=== PATIENT | male | born 1990 | race Caucasian/White ===

== ENCOUNTER 2024-09-06 21:47 | Emergency (ER) | payer MEDICARE, MEDICAID, SELFPAY ==
[2024-09-06 21:53] VITALS: BP 153/92; PULSE 81; RESP 18; TEMP 37.5; O2SAT 91; BMI 22.4
[2024-09-06 22:18] LABS: Amphetamines Screen Urine Negative (Negative); Barbiturates Screen Urine Negative (Negative); Benzodiazepines Screen Urine Negative (Negative); Cocaine Screen Urine Negative (Negative); Opiate Screen Urine Negative (Negative); PCP Screen Urine Negative (Negative); THC Screen Urine Negative (Negative)
--- NOTE | 2024-09-06 22:35 | PC.NURSE ---
96 Hour Involuntary Hold Patient Rights have been reviewed with the patient and a copy of the same has been provided to him. Shoe Repair Supervisor Martha was present at chair side during the presentation of Rights.
[2024-09-06 23:26] LABS: Basophils % 0.4 %; Eosinophils % 0.6 %; Hematocrit 39.4 % (37-53); Lymphocytes # 2.6 10^3/uL (0.8-4.8); Lymphocytes % 49.1 %; Mean Corpuscular HGB Conc 33.2 g/dL (30-55); Mean Corpuscular Hemoglobin 28.2 pg (27-33); Mean Corpuscular Volume 84.7 fl (82-101); Mean Platelet Volume 11.6 fL (7.4-10.4); Monocytes # 0.5 10^3/uL (0.2-0.9); Monocytes % 9.5 %; Nucleated Red Blood Cells % 0 %; Platelet Count 163 10^3/cmm (157-399); Red Blood Count 4.65 10^6/uL (3.85-5.65); Red Cell Distribution Width 14.4 % (12.1-15.1); White Blood Count 5.25 10^3/uL (3.29-11.43)
[2024-09-06 23:48] LABS: Alanine Aminotransferase 7 U/L (0-41); Alkaline Phosphatase 45 U/L (40-130); Anion Gap 15.4 (5-19); Aspartate Amino Transferase 12 U/L (0-40); Blood Urea Nitrogen 9 mg/dL (6-20); Calcium 8.5 mg/dL (8.5-10.5); Carbon Dioxide 26 mmol/L (22-29); Chloride 102 mmol/L (98-107); Creatinine Clr Calc Pharmacy 168.8237; Globulin 2.6 g/dL (1.3-4.6); Glomerular Filtration Rate 130.7 mL/min (90-130); Glucose 122 mg/dL (65-115); Osmolality Calculated 290 mOsm/kg (285-295); Potassium 3.4 mmol/L (3.5-5.1); Salicylate 0.5 mg/dL (3-10); Sodium 140 mmol/L (136-145); Total Bilirubin 0.2 mg/dL (0.15-1.2); Total Protein 6.6 g/dL (6.6-8.7)
[2024-09-06 23:49] LABS: Acetaminophen < 5.0 ug/mL (10-30); Alcohol Level < 10 mg/dL (0-10)
[2024-09-07 01:57] VITALS: BP 124/76; PULSE 71; O2SAT 98
[2024-09-07 04:18] VITALS: BP 95/60; PULSE 73; O2SAT 96
--- NOTE | 2024-09-07 05:56 | PC.NURSE ---
CALLED REPORT TO [facility] TO SEND BACK
--- NOTE | 2024-09-07 06:04 | ED.C_ITS ---
HPI - Psych 2 General: Chief Complaint: Psychiatric Symptoms Stated Complaint: psych eval, si Time Seen by Provider: 09/06/24 21:49 History of Present Illness: 34 yo with a history of drug use, gang v iolence, and recent placement in a assisted presents with suicidal ideation. Pt reports significant emotional distress following the deaths of close family members, including his son and twin brother, both of whom due to violence. Pt describes a recent attempt to harm himself by trying to cut his arm with a deodorant cap, but was unsuccessful. Pt has been out of the assisted for approximately 19 days and is currently under state guardianship, which has changed multiple times. Pt reports feeling upset, hungry, and thirsty, but denies intent to harm others. Pt expresses frustration with his current situation and lack of family support in the area. Related Data Allergies Allergy/AdvReac Type Severity Reaction Status Date / Time codeine Allergy Unknown Verified 09/06/24 22:59 haloperidol (From Haldol) Allergy Unknown Verified 09/06/24 22:59 ketamine Allergy Unknown Verified 09/06/24 22:59 Physical Exam 2 Const: COMMON NORMALS: no acute distress, patient oriented x3 and alert HENMT: COMMON NORMALS: normocephalic and atraumatic HEAD & SCALP: n ormocephalic and atraumatic Eye: COMMON NORMALS: Equal, round and reactive pupils present, EOMs intact bilaterally and no scleral icterus PUPIL: Yes Equal, round and reactive pupils present Resp: COMMON NORMALS: normal respiratory effort and No retractions Cardio: COMMON NORMALS: regular rate, regular rhythm and No murmurs present (Cardio) RATE: regular rate RHYTHM: regular rhythm GI: COMMON NORMALS: Normal to inspection, nondistended, normoactive bowel sounds present, Soft to palpation and non-tender PALPATION: Yes Soft to palpation Neuro: COMMON NORMALS: patient oriented x3 SENSORIUM/ORIENTATION: Yes alert Psych: OTHER: Suicidal thoughts with plan of cutting wrist. Skin: OTHER: Mild abrasion of the volar aspect of the left wrist. No laceration. Course 2 Vital Signs: Vital signs: Vital Signs Temperature 99.5 F 09/06/24 21:53 Pulse Rate 73 09/07/24 04:18 Respiratory Rate 18 09/06/24 21:53 Blood Pressure 95/60 09/07/24 04:18 Pulse Oximetry 96 09/07/24 04:18 Oxygen Delivery Me thod Room Air 09/07/24 04:18 MDM - Psych Medical Decision Making In summary, patient is a schizophrenic with a guardian who comes from assisted for suspected suicidal thoughts. He attempted to harm himself by abrading his forearm. After being observed for several hours emergency department he no longer feels suicidal. I do not think he is a credible threat to himself or anyone else. We contacted his assisted and they are happy to take him back. I think this is reasonable. He knows that he is always welcome back in emergency department if symptoms get worse before outpatient follow-up. Lab Data 09/06/24 23:08 09/06/24 23:08 Laboratory Results WBC 5.25 10^3/uL (3.29-11.43) 09/06/24 23:08 RBC 4.65 10^6/uL (3.85-5.65) 09/06/24 23:08 Hgb 13.10 g/dL (11.27-16.99) 09/06/24 23:08 Hct 39.4 % (37-53) 09/06/24 23:08 MCV 84.7 fl (82-101) 09/06/24 23:08 MCH 28.2 pg (27-33) 09/06/24 23:08 MCHC 33.2 g/dL (30-55) 09/06/24 23:08 RDW 14.4 % (12.1-15.1) 09/06/24 23:08 Plt Count 163 10^3/cmm (157-399) 09/06/24 23:08 MPV 11.6 fL (7.4-10.4) H 09/06/24 23:08 Neut % (Auto) 40.0 % 09/06/24 23:08 Lymph % (Auto) 49.1 % 09/06/24 23:08 Brooke % (Auto) 9.5 % 09/06/24 23:08 Eos % (Auto) 0.6 % 09/06/24 23:08 Baso % (Auto) 0.4 % 09/06/24 23:08 Neut # (Auto) 2.10 10^3/uL (1.8-7.7) 09/06/24 23:08 Lymph # (Auto) 2.6 10^3/uL (0.8-4.8) 09/06/24 23:08 Brooke # (Auto) 0.5 10^3/uL (0.2-0.9) 09/06/24 23:08 Eos # (Auto) 0.0 10^3/uL (0.0-0.8) 09/06/24 23:08 Baso # (Auto) 0.0 10^3/uL (0.0-0.1) 09/06/24 23:08 Nucleated RBC % (auto) 0 % 09/06/24 23:08 Nucleated RBCs # 0.0 /100WBC 09/06/24 23:08 Sodium 140 mmol/L (136-145) 09/06/24 23:08 Potassium 3.4 mmol/L (3.5-5.1) L 09/06/24 23:08 Chloride 102 mmol/L (98-107) 09/06/24 23:08 Carbon Dioxide 26 mmol/L (22-29) 09/06/24 23:08 Anion Gap 15.4 (5-19) 09/06/24 23:08 BUN 9 mg/dL (6-20) 09/06/24 23:08 Creatinine 0.7 mg/dL (0.7-1.2) 09/06/24 23:08 GFR Calculation 130.7 mL/min (90-130) H 09/06/24 23:08 Glucose 122 mg/dL (65-115) H 09/06/24 23:08 Calculated Osmolality 290 mOsm/kg (285-295) 09/06/24 23:08 Calcium 8.5 mg/dL (8.5-10.5) 09/06/24 23:08 Total Bilirubin 0.2 mg/dL (0.15-1.2) 09/06/24 23:08 AST 12 U/L (0-40) 09/06/24 23:08 ALT 7 U/L (0-41) 09/06/24 23:08 Alkaline Phosphatase 45 U/L (40-130) 09/06/24 23:08 Total Protein 6.6 g/dL (6.6-8.7) 09/06/24 23:08 Albumin 4.0 g/dL (3.5-5.2) 09/06/24 23:08 Globulin 2.6 g/dL (1.3-4.6) 09/06/24 23:08 Salicylates 0.5 mg/dL (3-10) L 09/06/24 23:08 Urine Opiates Screen Negative ng/mL (Negative) 09/06/24 22:03 Acetaminophen < 5.0 ug/mL (10-30) L 09/06/24 23:08 Ur Barbiturates Screen Negative ng/mL (Negative) 09/06/24 22:03 Ur Phencyclidine Scrn Negative ng/mL (Negative) 09/06/24 22:03 Ur Amphetamines Screen Negative ng/mL (Negative) 09/06/24 22:03 U Benzodiazepines Scrn Negative ng/mL (Negative) 09/06/24 22:03 Urine Cocaine Screen Negative ng/mL (Negative) 09/06/24 22:03 U Marijuana (THC) Screen Negative ng/mL (Negative) 09/06/24 22:03 Ethyl Alcohol < 10 mg/dL (0-10) 09/06/24 23:08 No radiology studies performed this visit Discharge Plan Discharge Patient Disposition: Home Clinical Impression: Major depress, sev w/ psych Condition: Stable Discharge Orders: Discharge ED (Routine); Ordered 09/07/24 Ordered By: Lito Sylvester Discharge Diet: Usual diet Discharge Activity: Resume usual activity Patient Instructions: Patient Portal & Ghada Instructions Activity Restrictions/Additional Instructions: You are always welcome back in the emergency department if you have suicidal thoughts. Print Language: Burmese Coding Level of Care Code ED Fresh Work Wrapper Layer for Michelle Flowers
== END 2024-09-07 06:29 | disposition home or self-care (01) ==
PROVIDERS: Emergency Medicine; Emergency Provider Student in an Organized Health Care Education/Training Program
DX: F32.3 Major depressive disorder, single episode, severe with psychotic features (principal)
CPT/HCPCS: 36415; 80053; 80306; 80307; 85025; 99283

== ENCOUNTER 2024-09-15 18:53 | Emergency (ER) | payer MEDICARE, MEDICAID, SELFPAY ==
[2024-09-15 19:08] VITALS: BP 138/79; PULSE 91; RESP 18; TEMP 36.7; O2SAT 97; BMI 26.3
--- NOTE | 2024-09-15 19:17 | W.ED.PSYCHS ---
HPI - Psych General: Chief Complaint: Psychiatric Symptoms Stated Complaint: mhe Time Seen by Provider: 09/15/24 18:59 History of Present Illness: 34-year-old male patient with a history of bipolar disorder schizophrenia. Apparently has a guardian in [facility], and stays in a fci and not improved. He presents with aggressive behavior towards staff in the fci. Evidently affidavits have been written. He is not physically ill. He has been cooperative with police transport. Related Data Allergies Allergy/AdvReac Type Severity Reaction Status Date / Time codeine Allergy Unknown Verified 09/06/24 22:59 haloperidol (From Haldol) Allergy Unknown Verified 09/06/24 22:59 ketamine Allergy Unknown Verified 09/06/24 22:59 Physical Exam Const: COMMON NORMALS: no acute distress GENERAL APPEARANCE: cooperative; not ill appearing and not frail appearing HENMT: COMMON NORMALS: normocephalic, atraumatic and Normal external nose present HEAD & SCALP: normocephalic and atraumatic FACE & SINUS: normal facial exam and face symmetric NOSE: Normal external nose present Eye: COMMON NORMALS: Equal, round and reactive pupils present and EOMs intact bilaterally PUPIL: Yes Equal, round and reactive pupils present Neck/C-Spine: GENERAL: Yes trachea midline Chest: CHEST: Yes Symmetrical chest wall rise Resp: COMMON NORMALS: normal respiratory effort, No retractions, No use of accessory muscles and clear to auscultation bilaterally AUSCULTATION: clear to auscultation bilaterally Cardio: COMMON NORMALS: regular rate and regular rhythm RATE: regular rate RHYTHM: regular rhythm GI: COMMON NORMALS: Normal to inspection, nondistended, normoactive bowel sounds present Extremity: COMMON NORMALS: no pedal edema Neuro: KELSI COMA SCALE: document GCS findings Kelsi coma scale eye opening: Spontaneous Kelsi coma scale verbal response: Orientated [place] coma scale motor response: Obey commands [place] coma scale total score: 15 SENSORY EXAM: Yes extremities (intact) Psych: COMMON NORMALS: speech normal SPEECH: Yes normal speech Skin: COMMON NORMALS: no rashes or lesions noted GENERAL SKIN EXAM: no rashes or lesions noted Course Vital Signs: Vital signs: Vital Signs Temperature 98.0 F 09/15/24 19:08 Pulse Rate 91 09/15/24 19:08 Respiratory Rate 18 09/15/24 19:08 Blood Pressure 138/79 09/15/24 19:08 Pulse Oximetry 97 09/15/24 19:08 Oxygen Delivery Me thod Room Air 09/15/24 19:08 MDM - Psych Medical Decision Making We have no beds available at our facility tonight. He appears medically stable. Affidavits have been written. The patient is evidently a petty of the state, and has a guardian. We have yet to be able to contact this person. Will arrange transfer, as we have no beds currently available at our facility. Lab Data 09/15/24 19:33 09/15/24 19:33 Laboratory Results WBC 5.42 10^3/uL (3.29-11.43) 09/15/24 19:33 RBC 4.56 10^6/uL (3.85-5.65) 09/15/24 19:33 Hgb 12.90 g/dL (11.27-16.99) 09/15/24 19:33 Hct 39.2 % (37-53) 09/15/24 19:33 MCV 86.0 fl (82-101) 09/15/24 19:33 MCH 28.3 pg (27-33) 09/15/24 19:33 MCHC 32.9 g/dL (30-55) 09/15/24 19:33 RDW 14.8 % (12.1-15.1) 09/15/24 19:33 Plt Count 179 10^3/cmm (157-399) 09/15/24 19:33 MPV 11.3 fL (7.4-10.4) H 09/15/24 19:33 Neut % (Auto) 41.6 % 09/15/24 19:33 Lymph % (Auto) 48.5 % 09/15/24 19:33 Mcpherson % (Auto) 8.9 % 09/15/24 19:33 Eos % (Auto) 0.6 % 09/15/24 19:33 Baso % (Auto) 0.2 % 09/15/24 19:33 Neut # (Auto) 2.26 10^3/uL (1.8-7.7) 09/15/24 19:33 Lymph # (Auto) 2.6 10^3/uL (0.8-4.8) 09/15/24 19:33 Mcpherson # (Auto) 0.5 10^3/uL (0.2-0.9) 09/15/24 19:33 Eos # (Auto) 0.0 10^3/uL (0.0-0.8) 09/15/24 19:33 Baso # (Auto) 0.0 10^3/uL (0.0-0.1) 09/15/24 19:33 Nucleated RBC % (auto) 0 % 09/15/24 19:33 Nucleated RBCs # 0.0 /100WBC 09/15/24 19:33 Sodium 139 mmol/L (136-145) 09/15/24 19:33 Potassium 3.8 mmol/L (3.5-5.1) 09/15/24 19:33 Chloride 104 mmol/L (98-107) 09/15/24 19:33 Carbon Dioxide 24 mmol/L (22-29) 09/15/24 19:33 Anion Gap 14.8 (5-19) 09/15/24 19:33 BUN 4 mg/dL (6-20) L 09/15/24 19:33 Creatinine 0.7 mg/dL (0.7-1.2) 09/15/24 19:33 GFR Calculation 130.7 mL/min (90-130) H 09/15/24 19:33 Glucose 99 mg/dL (65-115) 09/15/24 19:33 Calculated Osmolality 285 mOsm/kg (285-295) 09/15/24 19:33 Calcium 8.4 mg/dL (8.5-10.5) L 09/15/24 19:33 Total Bilirubin 0.2 mg/dL (0.15-1.2) 09/15/24 19:33 AST 13 U/L (0-40) 09/15/24 19:33 ALT 7 U/L (0-41) 09/15/24 19:33 Alkaline Phosphatase 37 U/L (40-130) L 09/15/24 19:33 Total Protein 6.5 g/dL (6.6-8.7) L 09/15/24 19:33 Albumin 4.1 g/dL (3.5-5.2) 09/15/24 19:33 Globulin 2.4 g/dL (1.3-4.6) 09/15/24 19:33 TSH 0.67 uIU/mL (0.27-4.20) 09/15/24 19:33 Urine Color Yellow (Yellow) 09/15/24 19:33 Urine Appearance Clear (CLEAR) 09/15/24 19:33 Urine pH 7.5 (5-7) 09/15/24 19:33 Ur Specific [place] 1.006 (1.005-1.030) 09/15/24 19:33 Urine Protein Negative (Negative) 09/15/24 19:33 Urine Glucose (UA) Negative (Normal) 09/15/24 19:33 Urine Ketones Negative (Negative) 09/15/24 19:33 Urine Blood Negative (Negative) 09/15/24 19:33 Urine Nitrate Negative (Negative) 09/15/24 19:33 Urine Bilirubin Negative (Negative) 09/15/24 19:33 Urine Urobilinogen 0.2 mg/dL (Negative) 09/15/24 19:33 Ur Leukocyte Esterase Negative (Negative) 09/15/24 19:33 Urine RBC 0-2 /hpf (0-2) 09/15/24 19:33 Urine WBC 0-5 /hpf (0-5) 09/15/24 19:33 Ur Squamous Epith Cells 0-5 /hpf (0-5) 09/15/24 19:33 Amorphous Sediment Not Reportable 09/15/24 19:33 Urine Bacteria None seen /hpf (NONE) 09/15/24 19:33 Hyaline Casts 0-4 /lpf H 09/15/24 19:33 Salicylates < 0.3 mg/dL (3-10) L 09/15/24 19:33 Urine Opiates Screen Negative ng/mL (Negative) 09/15/24 19:33 Acetaminophen < 5.0 ug/mL (10-30) L 09/15/24 19:33 Ur Barbiturates Screen Negative ng/mL (Negative) 09/15/24 19:33 Valproic Acid 70.4 ug/mL (50-100) 09/15/24 19:33 Ur Phencyclidine Scrn Negative ng/mL (Negative) 09/15/24 19:33 Ur Amphetamines Screen Negative ng/mL (Negative) 09/15/24 19:33 U Benzodiazepines Scrn Negative ng/mL (Negative) 09/15/24 19:33 Urine Cocaine Screen Negative ng/mL (Negative) 09/15/24 19:33 U Marijuana (THC) Screen Negative ng/mL (Negative) 09/15/24 19:33 Ethyl Alcohol < 10 mg/dL (0-10) 09/15/24 19:33 Influenza A (PCR) Negative (Negative) 09/15/24 19:55 Influenza Type B (PCR) Negative (Negative) 09/15/24 19:55 RSV (PCR) Negative (Negative) 09/15/24 19:55 SARS-CoV-2 (PCR) Negative (Negative) 09/15/24 19:55 No radiology studies performed this visit Discharge Plan Discharge Patient Disposition: Xfer Psychiatric Hosp Clinical Impression: Suicidal ideation Condition: Stable Print Language: Italian Coding Level of Care Code ED Instrument Operator for Michelle Flowers
--- NOTE | 2024-09-15 19:30 | ECG_ITS ---
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
[2024-09-15 19:43] LABS: Glucose Urine UA Negative (Normal); Hematocrit 39.2 % (37-53); Hemoglobin 12.90 g/dL (11.27-16.99); Mean Corpuscular HGB Conc 32.9 g/dL (30-55); Mean Corpuscular Hemoglobin 28.3 pg (27-33); Mean Corpuscular Volume 86.0 fl (82-101); Nitrate Urine Negative (Negative); Nucleated Red Blood Cells % 0 %; Platelet Count 179 10^3/cmm (157-399); Red Blood Count 4.56 10^6/uL (3.85-5.65); Specific Gravity, Urine 1.006 (1.005-1.030); White Blood Count 5.42 10^3/uL (3.29-11.43)
[2024-09-15 19:48] LABS: Add Urine Microscopic? YES
[2024-09-15 19:50] LABS: PCP Screen Urine Negative (Negative)
[2024-09-15 20:08] LABS: Acetaminophen < 5.0 ug/mL (10-30); Alanine Aminotransferase 7 U/L (0-41); Albumin Level 4.1 g/dL (3.5-5.2); Alcohol Level < 10 mg/dL (0-10); Alkaline Phosphatase 37 U/L (40-130); Anion Gap 14.8 (5-19); Aspartate Amino Transferase 13 U/L (0-40); Blood Urea Nitrogen 4 mg/dL (6-20); Calcium 8.4 mg/dL (8.5-10.5); Carbon Dioxide 24 mmol/L (22-29); Chloride 104 mmol/L (98-107); Creatinine Clr Calc Pharmacy 200.8697; Globulin 2.4 g/dL (1.3-4.6); Glucose 99 mg/dL (65-115); Osmolality Calculated 285 mOsm/kg (285-295); Potassium 3.8 mmol/L (3.5-5.1); Salicylate < 0.3 mg/dL (3-10); Sodium 139 mmol/L (136-145); Thyroid Stimulating Hormone 0.67 uIU/mL (0.27-4.20); Total Protein 6.5 g/dL (6.6-8.7)
[2024-09-15 20:38] LABS: Respiratory Syncytial Virus Ce NEGATIVE (Negative); SARS-CoV-2 PCR NEGATIVE (Negative)
[2024-09-16 05:30] VITALS: BP 119/72; PULSE 78; RESP 16; TEMP 36.6; O2SAT 98
== END 2024-09-16 10:29 ==
PROVIDERS: Emergency Provider Emergency Medicine
DX: R45.851 Suicidal ideations (principal); Z11.52 Encounter for screening for COVID-19
CPT/HCPCS: 36415; 80053; 80164; 80306; 80307; 81001; 84443; 85025; 87637; 93005; 93010; 99285; J9999

== ENCOUNTER 2024-11-08 11:10 | Emergency (ER) | payer MEDICARE, MEDICAID, SELFPAY ==
--- OUTSIDE RECORDS SUMMARY | 2011-12-09 11:38 | XMS_ITS | Continuity of Care Document ---
Author Organization [facility] Address [address] [id number] [address] Phone Care Team Providers Care Log Feeder Name Role Phone Chang DECKER, Olvin Unavailable Unavailable Allergies, Adverse Reactions, Alerts Substance Reaction Status Criticality No Known Allergies Active No Inform ation Medications Medication Instructions Dosage Effective Dates (start - stop) Status Comments ranitidine 150 mg Tab take 1 tablet by o ral route 2 times every day - Active Invega 3 mg 24 hr Tab take 1 tablet by o ral route every day in the morning 3 MG - Active gabapentin 100 mg Cap take 1 Capsule by oral route 3 times every day 100 MG - Active melatonin 5 mg Tab take 1 tablet my ora l route at bedtime for sleep - Active Concerta 54 mg 24 hr Tab take 1 tablet by oral route every day in the morning 54 MG - Active Procedures Procedure Date COMPREHEN METABOLIC PANEL (PP $15) COMPLETE CBC W/AUTO DIFF WBC (PP $10) Ju URINALYSIS, AUTO, W/O SCOPE (PP $5) ROUTINE VENIPUNCTURE OFFICE/OUTPATIENT VISIT, EST OFFICE/OUTPATIENT VISIT, NEW Advance Directives Directive Yes / No Effective Date File Name No Information Encounters Encounter Description Practice Location Reason(s) For Visit Diagnoses Date Provider Providers Copied on Encounter [facility], [id number] [facility], [place], [place], [id number], [place] tel:[phone] Family Medicine F1 No Information 2 Strong Olvin. [address], [place], [place], [id number], [place]. tel:[phone] [facility], [id number] [place], [id number], [place] tel:[phone] Family Medicine F1 Abdominal pain, epigastric 2 No Information OFFICE/OUTPA TIENT VISIT, [facility], [id number] [place], [place], [id number], [place] tel:[phone] Family Medicine F1 f/u on abdominal pain (chief complaint) bi-polar disorder (chief complaint) Abdominal pain, epigastricAttenti on deficit disorder of childhood with hyperactivityBipo lar disorder, unspecified 2 No Information OFFICE/OUTPA TIENT VISIT, [facility], [id number], [id number], [place] tel:[phone] Family Medicine F1 Establish Care (chief complaint) Attention deficit disorder of childhood with hyperactivityBipo lar disorder, unspecified 2 No Information Family History Family Member Type Diagnosis Age At Onset No Information Payers Payer name Insurance type Covered democrat ID Fran avalos(dewayne) L[place] Medicaid MC [id number] Social History Type Description Quantity Date Captured Comments Sex Male Smoking Status No Information Chief Complaint And Reason For Visit No Information Reason For Referral Reason For Referral No Information Plan Of Treatment Date Type Action Status Referral Ordered: Referral: psychiatry. Evaluate and treat. Appointment date/timeframe: 12/07/2011 ordered History Of Present Illness Encounter Date Complaint History Of Prese nt Illness No Information Functional Status Date Functional Assessmen t No Information Instructions Date Instruction Additional Infor mation No Information Assessments Type Assessment Date No Information Patient Care Teams Name Effective Dates (start - stop) Status Members No Information
--- OUTSIDE RECORDS SUMMARY | 2024-05-04 09:57 | XMS_ITS | Continuity of Care Document ---
Author Organization [address] [place] [address] Address [address] [facility] [address] [place] [address] Phone Care Team Providers Care Sdet Name Role Phone Raman Chairez DPM Unavailable Unavailable Allergies, Adverse Reactions, Alerts Substance Reaction Status Criticality codeine Active No Information Medications Medication Instructions Dosage Effective Dates (start - stop) Status Comments CAPLYTA (unknown strength) take 1 capsule by oral route every day Not Available - Active Advance Directives Directive Yes / No Effective Date File Name Resuscitation Attempt Resuscitation/CPR N/A N /A Other Directive No N/A N/A WARNING:The information contained in this section is historical and is provided for information only and does not constitute a legal document or any assurance that the information is still accurate. Please verify the information with the dodge of the legal document before using it for clinical purposes. Encounters Encounter Description Practice Location Reason(s) For Visit Diagnoses Date Provider Providers Copied on Encounter [address] [place] [address], [address] [facility], [place], [place], [id number], tel:[phone] [facility] No Information 5 MAXINE Salinas. Family History Family Member Type Diagnosis Age At Onset No Information Payers Payer name Insurance type Covered republican ID Authoriza tion(s) No Information Social History Type Description Quantity Date Captured Comments Sex Male Smoking Status No Information Chief Complaint And Reason For Visit No Information Reason For Referral Reason For Referral No Information History Of Present Illness Encounter Date Complaint History Of Prese nt Illness No Information Functional Status Date Functional Assessmen t No Information Instructions Date Instruction Additional Infor mation No Information Assessments Type Assessment Date No Information Patient Care Teams Name Effective Dates (start - stop) Status Members No Information
[2024-11-08 11:12] VITALS: BP 122/77; PULSE 89; TEMP 36.8; O2SAT 97; BMI 28.5
--- NOTE | 2024-11-08 11:19 | XR_ITS ---
WS: [id number] Exam: XR hand LT min 3V* [id number] Date/Time of Exam: 11/08/2024 11:37 AM Reason For Exam: trauma to pinky DLP: There is medial dislocation of the base of the middle phalanx of the fifth finger. No fracture seen. The remainder of the LEFT hand appears normal. No soft tissue foreign bodies. XR/XR hand LT min 3V* [id number] IMPRESSION: 1. Dislocation at the PIP joint of the fifth finger. There is some axial rotati on of the dislocated segment of the fifth finger.
--- NOTE | 2024-11-08 11:19 | W.ED.EXTPRO ---
HPI - Extremity Problem General: Chief complaint: Extremity Injury, Upper Stated complaint: left pinky finger Time Seen by Provider: 11/08/24 11:14 History of Present Illness: Patient comes in with left pinky pain. States that they are playing football when he felt something snap in his left pinky. On physical exam he has deformity of the left pinky with bruising and swelling. Will check x-ray, and reassess Related Data Allergies Allergy/AdvReac Type Severity Reaction Status Date / Time codeine Allergy Unknown Verified 11/08/24 11:16 haloperidol (From Haldol) Allergy Unknown Verified 11/08/24 11:16 ketamine Allergy Unknown Verified 11/08/24 11:16 Review of Systems Musc: Reports: other (Left pinky pain) Physical Exam Extremity: NARRATIVE EXTREMITY EXAM: Deformity, bruising, swelling of the left pinky Procedures Orthopedic Joint Reduction Joint #1: Time Out Performed: Yes Side: left Joint Reduction Location: finger (Left pinky PIP joint) Analgesia: none Technique used: traction/counter-traction Post-reduction neuro exam: intact Post-reduction vascular: intact Post Reduction X-Ray Obtained: No Splint Applied: No (Beto taped to the fourth finger) Patient Tolerated Procedure: well Course Vital Signs: Vital signs: Vital Signs Temperature 98.2 F 11/08/24 11:12 Pulse Rate 89 11/08/24 11:12 Blood Pressure 122/77 11/08/24 11:12 Pulse Oximetry 97 11/08/24 11:12 Oxygen Delivery Me thod Room Air 11/08/24 11:12 MDM - Extremity (Nontraumatic) Medical Decision Making On reassessment I talked to the patient about his x-ray results. His x-ray interpreted by me shows a dislocation of the PIP joint of his left fifth finger. I was able to relocate the dislocation at the bedside using traction and countertraction. The patient tolerated the procedure without complication. Will discharge at this time with precautions to return for worsening or changing symptoms. XR interpretation done by ED provider, pending radiology final review ED provider radiology interpretation(s): XR hand interpreted by me shows dislocation of the left fifth PIP joint Discharge Plan Discharge Patient Disposition: Home Clinical Impression: Dislocation of finger Condition: Stable Discharge Orders: Discharge ED (Routine); Ordered 11/08/24 Ordered By: rAie Naylor Patient Instructions: Dislocation - Finger, Patient Portal & Ghada Instructions Print Language: Frisian Coding Level of Care Code ED Director Of Clinical Education for Michelle Flowers
--- NOTE | 2024-11-08 11:59 | PC.PHAR ---
Pt is from [facility]-discharged prior to getting med list completed.
--- NOTE | 2024-11-08 12:03 | PC.NURSE ---
Report called to Dian gagnon [facility]. They will send their line driver for warehouse picker.
[2024-11-08] MEDS: HYDROcodone-acetaminophen 5-325 mg Tablet 1 TAB PO (12:14)
[2024-11-08 12:15] VITALS: BP 122/77; PULSE 72; O2SAT 97
== END 2024-11-08 12:56 | disposition home or self-care (01) ==
PROVIDERS: Emergency Provider Emergency Medicine
DX: S63.287A Dislocation of proximal interphalangeal joint of left little finger, initial encounter (principal); X58.XXXA Exposure to other specified factors, initial encounter; Y93.61 Activity, american tackle football
CPT/HCPCS: 73130; 99283; J9999

== ENCOUNTER 2024-12-10 21:09 | Inpatient (IN) | payer MEDICARE, MEDICAID, SELFPAY ==
[2024-12-10 21:15] VITALS: BP 131/90; PULSE 88; RESP 18; TEMP 37; O2SAT 97; BMI 27.8
[2024-12-10 21:35] LABS: Hematocrit 40.2 % (37-53); Hemoglobin 14.00 g/dL (11.27-16.99); Mean Corpuscular HGB Conc 34.8 g/dL (30-55); Mean Corpuscular Hemoglobin 29.2 pg (27-33); Mean Corpuscular Volume 83.8 fl (82-101); Nucleated Red Blood Cells % 0 %; Platelet Count 199 10^3/cmm (157-399); Red Blood Count 4.80 10^6/uL (3.85-5.65); White Blood Count 6.22 10^3/uL (3.29-11.43)
--- NOTE | 2024-12-10 21:35 | PC.NURSE ---
Pt was walked to restroom by security to collect a urine sample, pt tried but was unsuccessful at this time.
[2024-12-10 21:52] LABS: Acetaminophen < 5.0 ug/mL (10-30); Alanine Aminotransferase 10 U/L (0-41); Albumin Level 4.2 g/dL (3.5-5.2); Alkaline Phosphatase 41 U/L (40-130); Anion Gap 15.1 (5-19); Aspartate Amino Transferase 14 U/L (0-40); Blood Urea Nitrogen 11 mg/dL (6-20); Calcium 8.8 mg/dL (8.5-10.5); Carbon Dioxide 25 mmol/L (22-29); Chloride 102 mmol/L (98-107); Creatinine Clr Calc Pharmacy 175.5548; Globulin 2.7 g/dL (1.3-4.6); Glucose 92 mg/dL (65-115); Osmolality Calculated 285 mOsm/kg (285-295); Potassium 4.1 mmol/L (3.5-5.1); Salicylate < 0.3 mg/dL (3-10); Sodium 138 mmol/L (136-145); Total Protein 6.9 g/dL (6.6-8.7)
[2024-12-10 22:21] LABS: Add Urine Microscopic? NO
[2024-12-10 22:24] LABS: Glucose Urine UA Negative (Normal); Nitrate Urine Negative (Negative); Specific Gravity, Urine 1.010 (1.005-1.030)
--- NOTE | 2024-12-10 22:27 | PC.NURSE ---
Pt requesting Dr. Henry, nurse got pt a Dr. Henry, pt is pleasant and cooperative with cares at this time. Sitter with pt.
[2024-12-10 22:28] LABS: Charge for UA Resulting for Rev
[2024-12-10 22:31] LABS: PCP Screen Urine Negative (Negative)
--- NOTE | 2024-12-11 01:04 | PC.NURSE ---
[facility] Pt served with copy of [facility] by this RN and security. Pt A&Ox3, pt made multiple statements regarding not wanting to go back to the SNF he currently resides in.
--- NOTE | 2024-12-11 01:07 | ED.C_ITS ---
HPI - Psych 2 General: Chief Complaint: Psychiatric Symptoms Stated Complaint: HI Time Seen by Provider: 12/10/24 21:20 History of Present Illness: 34-year-old male with unclear psychiatri c history presents requesting alternative placement. Patient reports longstanding residence in facilities (~16 years) and states current placement is intolerable, with frequent conflicts and disturbances. Patient fears returning will lead to loss of control and harming others; denies desire to kill but admits to passive thoughts of harming people when frustrated. Requests short-term psychiatric hospital admission until guardian secures new housing. States guardian is working to restore his independence and find a place. No medical complaints provided. Review of Systems otherwise not detailed. Related Data Allergies Allergy/AdvReac Type Severity Reaction Status Date / Time codeine Allergy Unknown Verified 12/10/24 21:15 haloperidol (From Haldol) Allergy Unknown Verified 12/10/24 21:15 ketamine Allergy Unknown Verified 12/10/24 21:15 Physical Exam 2 Const: COMMON NORMALS: no acute distress, patient oriented x3 and alert HENMT: COMMON NORMALS: normocephalic and atraumatic HEAD & SCALP: n ormocephalic and atraumatic Eye: COMMON NORMALS: Equal, round and reactive pupils present, EOMs intact bilaterally and no scleral icterus PUPIL: Yes Equal, round and reactive pupils present Resp: COMMON NORMALS: normal respiratory effort and No retractions Cardio: COMMON NORMALS: regular rate, regular rhythm and No murmurs present (Cardio) RATE: regular rate RHYTHM: regular rhythm GI: COMMON NORMALS: Normal to inspection, nondistended, normoactive bowel sounds present, Soft to palpation and non-tender PALPATION: Yes Soft to palpation Neuro: COMMON NORMALS: patient oriented x3 SENSORIUM/ORIENTATION: Yes alert Psych: OTHER: Admits previously stating he felt homicidal thoughts towards staff members and other residents at assisted but that now he just wants to be in physical harm but would not actually kill them. No SI. Skin: COMMON NORMALS: no rashes or lesions noted GENERAL SKIN EXAM: no rashes or lesions noted Course 2 Vital Signs: Vital signs: Vital Signs Temperature 98.6 F 12/10/24 21:15 Pulse Rate 88 12/10/24 21:15 Respiratory Rate 18 12/10/24 21:15 Blood Pressure 131/90 12/10/24 21:15 Pulse Oximetry 97 12/10/24 21:15 Oxygen Delivery Me thod Room Air 12/10/24 21:15 MDM - Psych Medical Decision Making 34-year-old male presents for help with placement due to agitation and passive homicidal ideation; denies intent to kill. Patient fears returning to current facility will lead to harming others; requests temporary psychiatric admission while guardian finds new housing. Physical exam: normal overall; patient agitated; passive thoughts of harming others; no stated intent to kill. Patient remained hemodynamically stable 30 course. He is medically cleared and placed on a 96-hour hold given his status as having a guardian. care home was contacted and told that we plan to admit him for stabilization and national account representative from assisted stated that once he is stabilized he is welcome back at assisted. I spoke with the on-call psychiatrist who graciously agrees to admit the patient for stabilization. Lab Data 12/10/24 21:26 12/10/24 21:26 Laboratory Results WBC 6.22 10^3/uL (3.29-11.43) 12/10/24 21:26 RBC 4.80 10^6/uL (3.85-5.65) 12/10/24 21:26 Hgb 14.00 g/dL (11.27-16.99) 12/10/24 21:26 Hct 40.2 % (37-53) 12/10/24 21: MCV 83.8 fl (82-101) 12/10/24 21: MCH 29.2 pg (27-33) 12/10/24 21: MCHC 34.8 g/dL (30-55) 12/10/24 21:26 RDW 13.1 % (12.1-15.1) 12/10/24 21:26 Plt Count 199 10^3/cmm (157-399) 12/10/24 21:26 MPV 10.7 fL (7.4-10.4) H 12/10/24 21:26 Neut % (Auto) 39.1 % 12/10/24 21: Lymph % (Auto) 49.4 % 12/10/24 21:26 [place] % (Auto) 10.0 % 12/10/24 21: Eos % (Auto) 1.0 % 12/10/24 21:26 Baso % (Auto) 0.3 % 12/10/24 21: Neut # (Auto) 2.44 10^3/uL (1.8-7.7) 12/10/24 21: Lymph # (Auto) 3.1 10^3/uL (0.8-4.8) 12/10/24 21: [place] # (Auto) 0.6 10^3/uL (0.2-0.9) 12/10/24: Eos # (Auto) 0.1 10^3/uL (0.0-0.8) 12/10/24 21: Baso # (Auto) 0.0 10^3/uL (0.0-0.1) 12/10/24 21: Nucleated RBC % (auto) 0 % 12/10/24 21: Nucleated RBCs # 0.0 /100WBC 12/10/24 21: Sodium 138 mmol/L (136-145) 12/10/24 21: Potassium 4.1 mmol/L (3.5-5.1) 12/10/24 21: Chloride 102 mmol/L (98-107) 12/10/24 21: Carbon Dioxide 25 mmol/L (22-29) 12/10/24 21: Anion Gap 15.1 (5-19) 12/10/24 21: BUN 11 mg/dL (6-20) 12/10/24 21: Creatinine 0.8 mg/dL (0.7-1.2) 12/10/24 21: GFR Calculation 112.0 mL/min (90-130) 12/10/24 21: Glucose 92 mg/dL (65-115) 12/10/24 21: Calculated Osmolality 285 mOsm/kg (285-295) 12/10/24 21: Calcium 8.8 mg/dL (8.5-10.5) 12/10/24: Total Bilirubin 0.2 mg/dL (0.15-1.2) 12/10/24: AST 14 U/L (0-40) 12/10/24: ALT 10 U/L (0-41) 12/10/24: Alkaline Phosphatase 41 U/L (40-130) 12/10/24 21:26 Total Protein 6.9 g/dL (6.6-8.7) 12/10/24 21: Albumin 4.2 g/dL (3.5-5.2) 12/10/24 21: Globulin 2.7 g/dL (1.3-4.6) 12/10/24 21:26 Urine Color Yellow (Yellow) 12/10/24 21:53 Urine Appearance Clear (CLEAR) 12/10/24 21:53 Urine pH 7.5 (5-7) 12/10/24 21:53 Ur Specific [place] 1.010 (1.005-1.030) 12/10/24 21:53 Urine Protein Negative (Negative) 12/10/24 21:53 Urine Glucose (UA) Negative (Normal) 12/10/24 21:53 Urine Ketones Negative (Negative) 12/10/24 21:53 Urine Blood Negative (Negative) 12/10/24 21:53 Urine Nitrate Negative (Negative) 12/10/24 21:53 Urine Bilirubin Negative (Negative) 12/10/24 21:53 Urine Urobilinogen 1.0 mg/dL (Negative) 12/10/24 21:53 Ur Leukocyte Esterase Negative (Negative) 12/10/24 21:53 Amorphous Sediment Not Reportable 12/10/24 21:53 Salicylates < 0.3 mg/dL (3-10) L 12/10/24 21:26 Urine Opiates Screen Negative ng/mL (Negative) 12/10/24 21:53 Acetaminophen < 5.0 ug/mL (10-30) L 12/10/24 21:26 Ur Barbiturates Screen Negative ng/mL (Negative) 12/10/24 21:53 Ur Phencyclidine Scrn Negative ng/mL (Negative) 12/10/24 21:53 Ur Amphetamines Screen Negative ng/mL (Negative) 12/10/24 21:53 U Benzodiazepines Scrn Positive ng/mL (Negative) H 12/10/24 21:53 Urine Cocaine Screen Negative ng/mL (Negative) 12/10/24 21:53 U Marijuana (THC) Screen Negative ng/mL (Negative) 12/10/24 21:53 No radiology studies performed this visit Discharge Plan Discharge Patient Disposition: Admitted As Inpatient Clinical Impression: Homicidal thoughts Condition: Stable 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
[2024-12-11 01:40] VITALS: BP 103/67; PULSE 83; O2SAT 94
[2024-12-11 01:50] VITALS: BP 139/88; PULSE 90; RESP 18; TEMP 36.9; O2SAT 96
--- NOTE | 2024-12-11 05:47 | PC.NURSE ---
34-year-old male with unclear psychiatric history presents requesting alternative placement. Patient reports longstanding residence in facilities (~16 years) and states current placement is intolerable, with frequent conflicts and disturbances. Patient fears returning will lead to loss of control and harming others; denies desire to kill but admits to passive thoughts of harming people when frustrated. Requests short-term psychiatric hospital admission until guardian secures new housing. States guardian is working to restore his independence and find a place. No medical complaints provided. Review of Systems otherwise not detailed.
--- NOTE | 2024-12-11 05:53 | PC.NURSE ---
Pt skin was good all around with some minor scarrung on upper thighs. No behavioral issues.
--- NOTE | 2024-12-11 05:56 | PC.ADMIT ---
[address] [facility] Admission Note: The patient,Praneeth Sr,34 y/o, was given written information regarding hospital policies, unit procedures and contact persons. Patient's smoking status: . Vital Signs - 8 hr 12/11/24 01:40 12/11/24 01:50 12/11/24 01:50 Temperature 98.5 F Pulse Rate 83 90 Respiratory Rate 18 Blood Pressure 103/67 139/88 Pulse Oximetry 94 96 Oxygen Delivery Method Room Air Room Air Pt skin was good all around with some minor scarrung on upper thighs. No behavioral issues.
[2024-12-11 06:00] VITALS: BP 114/73; PULSE 68; RESP 17; TEMP 36.8; O2SAT 94
--- NOTE | 2024-12-11 10:10 | NUR.SHIFT ---
Pt states that he was up late last night, since he was admitted then. He denies anxiety and depression. No reports of S/HI or hallucinations. He is rating his Lt knee pain a 4/10. He is cooperative with assessment, but startles easily when he is woken.
[2024-12-11 13:41] VITALS: BP 126/75; PULSE 82; RESP 16; TEMP 36.4; O2SAT 96
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
[2024-12-11 16:58] VITALS: BP 111/70; PULSE 75; RESP 16; TEMP 37; O2SAT 96
[2024-12-11 19:55] VITALS: BP 116/75; PULSE 71; RESP 16; TEMP 37.1; O2SAT 96
[2024-12-12 06:00] VITALS: BP 113/76; PULSE 68; RESP 16; TEMP 36.6; O2SAT 98
--- NOTE | 2024-12-12 09:09 | NUR.SHIFT ---
When I asked pt how he slept last night he just shrugs his shoulders. I attempted to ask him questions about anxiety, depression, SI/HI and hallucinations and he states, nothing is wrong I let him know that I would get his morning meds soon and let him be.
--- NOTE | 2024-12-12 11:10 | PC.NURSE ---
v/o from Dr. Mack to check Depakote level
--- NOTE | 2024-12-12 13:04 | P.NPUPN_ITS ---
Subjective NPU 2 Subjective: 34-year-old male with PTSD, intermittent explosive disorder, and mild cognitive impairment admitted with reports of aggression in his correction. The patient reports that he does not wish to return to that correction. He had reported that In[facility]ga intramuscularly had been successful in managing his anger. He had reported adequate sleep. He had reported that he had no plans currently to harm anyone else but stated that he would harm those that made negative comments towards his gaining that had raised him in [place]. The patient had reported no feelings of hopelessness. He was redirectable on the milieu with no acts of aggression noted. He had reported that he had communicated with his guardian about wanting to leave his current facility and stated that they did not treat him well there over the last 3 months. Mental Status Exam 2 MSE Comments: This is a guarded tall white male with a flat occiput who appeared to have mild psychomotor agitation during the interview. His gait appeared within normal limits. His hygiene was fair. There was no evidence of any abnormal involuntary motor movements, tics, or tremors appreciated. His speech was normal in rate, rhythm, and prosody. His mood was described as allright. His affect was volatile. His thought process was linear but superficial. His thought content showed evidence of homicidal ideation towards staff at skilled nursing and he denied any suicidal ideation. He remained hypervigilant. There was an overall sense of distrust towards others. There was no evidence of any delusional thinking. He did not appear to be responding to internal stimuli. His insight is impaired. His judgment is limited. His impulse control appeared poor. His recent and remote memory appeared grossly intact but probably poor. His fund of knowledge was poor and his intelligence appeared commensurate with mild cognitive impairment. Vitals/I&O/Wt Last Vital Signs Temp 97.9 F 12/12/24 06:00 Pulse 68 12/12/24 06:00 Resp 16 12/12/24 06:00 BP 113/76 12/12/24 06:00 Pulse Ox 98 12/12/24 06:00 O2 Del Method Room Air 12/12/24 06:00 12/11/24 12/12/24 12/12/24 22:59 06:59 14:59 Intake Total 240 / 1200 Balance 240 / 1200 Weight last 48 hrs Weight 103.873 kg Data NPU 12/10/24 21:26 12/10/24 21:26 A&P Assessment and plan 1. PTSD (post-traumatic stress disorder): 2. Intermittent explosive disorder: 3. Homicidal thoughts: Plan: 34-year-old male with a history of mild cognitive dysfunction, likely PTSD, poor impulse control currently endorsing homicidal ideation and unwilling to return to his current skilled nursing. #1. Attempt to engage patient in individual milieu and group therapy. #2. Will restart outpatient medications. #3. Will attempt to gather collateral information, likely seeking new placement. [facility] IM may be helpful as patient had reported good success with invega IM on monthly basis. #4 #4 #4. Will attempt to find new placement for patient-locked facility. PDMP PDMP Reviewed: Not Reviewed Involuntary Hold Information 2 Hold Status: Legal Status: Active Guardianship Attestations NPU 2 Medical Necessity Statement*: Inpatient hospitalization is medically necessary and the clinically appropriate intervention at this time. We will monitor/initiate medications and make changes as indicated. The patient's likely length of stay 8-10 days. Coding Level of Care Code Acute Code for [facility] Fwd Diagnoses PTSD (post-traumatic stress disorder) F43.10 Intermittent explosive disorder F63.81 Homicidal thoughts R45.850
[2024-12-12 14:00] VITALS: BP 121/91; PULSE 110; RESP 16; TEMP 37.2; O2SAT 97
[2024-12-12 20:09] VITALS: BP 137/86; PULSE 96; RESP 18; TEMP 36.4; O2SAT 96
[2024-12-12] MEDS: MELATONIN 3 MG TABLET 6 MG PO (20:17)
[2024-12-13 06:00] VITALS: BP 100/65; PULSE 66; RESP 18; TEMP 37.1; O2SAT 95
[2024-12-13] MEDS: paliperidone palmitate 234 mg Syringe IM (08:48)
[2024-12-13 13:45] VITALS: BP 131/85; PULSE 92; RESP 16; TEMP 37.1; O2SAT 97
--- NOTE | 2024-12-13 14:17 | P.NPUPN_ITS ---
Subjective NPU 2 Subjective: Patient presented today reporting that he was doing fine and had strong intentions to not do anything that would cause any issues here or make for a bad impression to anyone who is considering him. He acknowledges that his behavior will determine the interest that facilities might have with him. We discussed these issues during our session and then he approached multiple times seeming to have concerns related to this tech writer not suggesting that there was a blank check so to speak about how long he could stay here waiting for placement. We discussed the fact that we will attempt to find a facility and many referrals have been made but when this process is underway there are times where facilities are located and people have to return to their previous place even if that is not optimal if the wait is extensive. He denied any side effects with medication. Mental Status Exam 2 MSE Comments: This is a guarded tall white male with a flat occiput who appeared to have mild psychomotor mild psychomotor agitation during the interview. His gait appeared within normal limits. His hygiene was fair. There was no evidence of any abnormal involuntary motor movements, tics, or tremors appreciated. His speech was normal in rate, rhythm, and prosody. His mood was described as allright. His affect was volatile. His thought process was linear but superficial. His thought content showed evidence of homicidal ideation towards staff at senior living and he denied any suicidal ideation. He remained hypervigilant. There was an overall sense of distrust towards others. There was no evidence of any delusional thinking. He did not appear to be responding to internal stimuli. His insight is impaired. His judgment is limited. His impulse control appeared poor. His recent and remote memory appeared grossly intact but probably poor. His fund of knowledge was poor and his intelligence appeared commensurate with mild cognitive impairment. Vitals/I&O/Wt Last Vital Signs Temp 98.7 F 12/13/24 13:45 Pulse 92 12/13/24 13:45 Resp 16 12/13/24 13:45 BP 131/85 12/13/24 13:45 Pulse Ox 97 12/13/24 13:45 O2 Del Method Room Air 12/13/24 13:45 Data NPU 12/10/24 21:26 12/10/24 21:26 A&P Assessment and plan 1. PTSD (post-traumatic stress disorder): 2. Intermittent explosive disorder: 3. Homicidal thoughts: Plan: 34-year-old male with a history of mild cognitive dysfunction, likely PTSD, poor impulse control currently endorsing homicidal ideation and unwilling to return to his current senior living. #1. Attempt to engage patient in individual milieu and group therapy. #2. Will restart outpatient medications. #3. Will attempt to gather collateral information, likely seeking new placement. Invega IM may be helpful as patient had reported good success with invega IM on monthly basis. #4. Will attempt to find new placement for patient-locked facility. #5. Patient and guardian may have to except a return to the current facility for some period of time if they will receive him while a new location is being orchestrated. PDMP PDMP Reviewed: Not Reviewed Involuntary Hold Information 2 Hold Status: Legal Status: Active Guardianship Attestations NPU 2 Medical Necessity Statement*: Inpatient hospitalization is medically necessary and the clinically appropriate intervention at this time. We will monitor/initiate medications and make changes as indicated. The patient's likely length of stay 7-9 days. Coding Level of Care Code Acute Code for [facility] Diagnoses PTSD (post-traumatic stress disorder) F43.10 Intermittent explosive disorder F63.81 Homicidal thoughts R45.850
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
[2024-12-13 19:37] VITALS: BP 133/84; PULSE 89; RESP 16; TEMP 37.1; O2SAT 98
[2024-12-13] MEDS: MELATONIN 3 MG TABLET 6 MG PO (20:02)
[2024-12-14 06:00] VITALS: BP 101/65; PULSE 70; RESP 18; TEMP 36.6; O2SAT 95
[2024-12-14] MEDS: divalproex DR 500 mg Tablet 1500 MG PO ×2 (08:32→17:24)
--- NOTE | 2024-12-14 10:37 | P.NPUPN_ITS ---
Subjective NPU 2 Subjective: Patient presented today reporting things are going fine. He mentioned that he is aware that social work team put out lots of referrals for him and that he continues to behave in a way that is supportive of people considering him for transfer to their facility. We continue to work his behaviors and his desire to make a change but continued to be upfront that we are limited in our power as we are not the receiving facility we can only make referrals and the timeframe of referrals is out of our control. Otherwise she had no reports of any problematic behavior and denied any side effects to his medication. Mental Status Exam 2 MSE Comments: This is a guarded tall white male with a flat occiput who appeared to have mild psychomotor mild psychomotor agitation during the interview. His gait appeared within normal limits. His hygiene was fair. There was no evidence of any abnormal involuntary motor movements, tics, or tremors appreciated. His speech was normal in rate, rhythm, and prosody. His mood was described as allright. His affect was volatile. His thought process was linear but superficial. His thought content showed evidence of homicidal ideation towards staff at senior living and he denied any suicidal ideation. He remained hypervigilant. There was an overall sense of distrust towards others. There was no evidence of any delusional thinking. He did not appear to be responding to internal stimuli. His insight is impaired. His judgment is limited. His impulse control appeared poor. His recent and remote memory appeared grossly intact but probably poor. His fund of knowledge was poor and his intelligence appeared commensurate with mild cognitive impairment. Vitals/I&O/Wt Last Vital Signs Temp 97.8 F 12/14/24 06:00 Pulse 70 12/14/24 06:00 Resp 18 12/14/24 06:00 BP 101/65 12/14/24 06:00 Pulse Ox 95 12/14/24 06:00 O2 Del Method Room Air 12/14/24 06:00 12/13/24 12/14/24 12/14/24 22:59 06:59 14:59 Intake Total 0 / 0 Balance 0 / 0 Data NPU 12/10/24 21:26 12/10/24 21:26 A&P Assessment and plan 1. PTSD (post-traumatic stress disorder): 2. Intermittent explosive disorder: 3. Homicidal thoughts: Plan: 34-year-old male with a history of mild cognitive dysfunction, likely PTSD, poor impulse control currently endorsing homicidal ideation and unwilling to return to his current senior living. #1. Attempt to engage patient in individual milieu and group therapy. #2. Will restart outpatient medications. #3. Will attempt to gather collateral information, likely seeking new placement. [facility] may be helpful as patient had reported good success with [facility] on monthly basis. #4. Will attempt to find new placement for patient-locked facility. #5. Patient and guardian may have to except a return to the current facility for some period of time if they will receive him while a new location is being orchestrated. PDMP PDMP Reviewed: Not Reviewed Involuntary Hold Information 2 Hold Status: Legal Status: Active Guardianship Attestations NPU 2 Medical Necessity Statement*: Inpatient hospitalization is medically necessary and the clinically appropriate intervention at this time. We will monitor/initiate medications and make changes as indicated. The patient's likely length of stay 6-8 days. Coding Level of Care Code Acute Code for [facility] Diagnoses PTSD (post-traumatic stress disorder) F43.10 Intermittent explosive disorder F63.81 Homicidal thoughts R45.850
[2024-12-14 12:44] VITALS: PULSE 89; RESP 16; O2SAT 98
[2024-12-14 12:46] VITALS: O2SAT 98
[2024-12-14 13:39] VITALS: BP 146/99; PULSE 108; RESP 18; O2SAT 98
[2024-12-14] MEDS: fluticasone nasal spray 16gm Btl 1 SPRAY NASAL (13:53)
[2024-12-14 15:32] VITALS: BP 124/86; PULSE 88; RESP 18; O2SAT 97
[2024-12-14] MEDS: MELATONIN 3 MG TABLET 6 MG PO (21:02)
[2024-12-14 22:00] VITALS: BP 123/89; PULSE 89; RESP 19; TEMP 36.7; O2SAT 97
--- NOTE | 2024-12-15 01:52 | W.PM.NPUPNS ---
Subjective NPU Subjective: Patient presented today reporting that things are fine. He reports he is tolerating the medication well and denied any concerns related to being on the unit. He continued to be quite anxious surrounding his disposition and felt the need for continued to engage the right whenever possible to ensure that there was a understanding of his desire to discharge from here to his next facility we continue to discuss attempting to do that with the assistance of the social work team but that we have to allow the situation to dictate the outcome depending on what a facility states as it is plan and the ability to assist him with a speedy acceptance. Otherwise there were no other issues that he expressed on he denied any side effects with medication. Mental Status Exam MSE Comments: This is a guarded tall white male with a flat occiput who appeared to have mild psychomotor mild psychomotor agitation during the interview. His gait appeared within normal limits. His hygiene was fair. There was no evidence of any abnormal involuntary motor movements, tics, or tremors appreciated. His speech was normal in rate, rhythm, and prosody. His mood was described as okay just need a place to go to, his affect was anxious. His thought process was linear but superficial. His thought content showed evidence of homicidal ideation towards staff at skilled nursing and he denied any suicidal ideation. There was no evidence of any delusional thinking. He did not appear to be responding to internal stimuli. His insight is impaired. His judgment is limited. His impulse control appeared poor. His recent and remote memory appeared grossly intact but probably poor. His fund of knowledge was poor and his intelligence appeared commensurate with mild cognitive impairment. Vitals/I&O/Wt Last Vital Signs Temp 97.7 F 12/15/24 06:00 Pulse 67 12/15/24 06:00 Resp 16 12/15/24 06:00 BP 108/65 12/15/24 06:00 Pulse Ox 98 12/15/24 06:00 O2 Del Method Room Air 12/15/24 06:00 Weight last 48 hrs Weight 103.079 kg Data NPU 12/10/24 21:26 12/10/24 21:26 A&P Assessment and plan 1. PTSD (post-traumatic stress disorder): 2. Intermittent explosive disorder: 3. Homicidal thoughts: Plan: 34-year-old male with a history of mild cognitive dysfunction, likely PTSD, poor impulse control currently endorsing homicidal ideation and unwilling to return to his current skilled nursing. #1. Attempt to engage patient in individual milieu and group therapy. #2. Will restart outpatient medications. #3. Will attempt to gather collateral information, likely seeking new placement. [facility] may be helpful as patient had reported good success with [facility] on monthly basis. #4. Will attempt to find new placement for patient-locked facility. #5. Patient and guardian may have to except a return to the current facility for some period of time if they will receive him while a new location is being orchestrated. PDMP PDMP Reviewed: Not Reviewed Involuntary Hold Information Hold Status: Legal Status: Active Guardianship Attestations NPU Medical Necessity Statement*: Inpatient hospitalization is medically necessary and the clinically appropriate intervention at this time. We will monitor/initiate medications and make changes as indicated. The patient's likely length of stay 5-7 days. Coding Level of Care Code Acute Code for [facility] Fwd Diagnoses PTSD (post-traumatic stress disorder) F43.10 Intermittent explosive disorder F63.81 Homicidal thoughts R45.850
[2024-12-15 04:13] VITALS: BMI 27.6
[2024-12-15 06:00] VITALS: BP 108/65; PULSE 67; RESP 16; TEMP 36.5; O2SAT 98
[2024-12-15] MEDS: divalproex DR 500 mg Tablet 1500 MG PO ×2 (09:38→18:18)
[2024-12-15] MEDS: fluticasone nasal spray 16gm Btl 1 SPRAY NASAL (09:40)
[2024-12-15 13:29] VITALS: BP 112/78; PULSE 84; RESP 19; TEMP 36.9; O2SAT 97
[2024-12-15] MEDS: MELATONIN 3 MG TABLET 6 MG PO (19:52)
[2024-12-15 22:00] VITALS: BP 105/64; PULSE 70; RESP 18; TEMP 36.3; O2SAT 97
[2024-12-16 06:00] VITALS: BP 116/82; PULSE 64; RESP 17; TEMP 36.3; O2SAT 96
[2024-12-16] MEDS: divalproex DR 500 mg Tablet 1500 MG PO ×2 (07:58→18:21)
--- NOTE | 2024-12-16 08:06 | P.NPUPN_ITS ---
Subjective NPU 2 Subjective: Patient presented today reporting that he is feeling better overall and that he is proud of himself for doing better. He continues to perseverate about maintaining his inpatient status and making sure he went to another facility. We discussed that most facilities struggle with having any kind of diversity and fluids there with older cognitively impaired individuals being the primary population in these facilities and that it was unlikely he will to find a place that was full of young people for him to interact with since a lot of his concerns were related to hitting and with the population on his floor. We discussed he might want to be cautious because not only can things not necessarily get better and they can get worse where his main complaint about his current facility has more to do with the other residents than what the facility provides. He denied any side effects of his medication. Mental Status Exam 2 MSE Comments: This is a guarded tall white male with a flat occiput who appeared to have mild psychomotor mild psychomotor agitation during the interview. His gait appeared within normal limits. His hygiene was fair. There was no evidence of any abnormal involuntary motor movements, tics, or tremors appreciated. His speech was normal in rate, rhythm, and prosody. His mood was described as okay just need a place to go to, his affect was anxious. His thought process was linear but superficial. His thought content showed evidence of homicidal ideation towards staff at [facility] and he denied any suicidal ideation. There was no evidence of any delusional thinking. He did not appear to be responding to internal stimuli. His insight is impaired. His judgment is limited. His impulse control appeared poor. His recent and remote memory appeared grossly intact but probably poor. His fund of knowledge was poor and his intelligence appeared commensurate with mild cognitive impairment. Vitals/I&O/Wt Last Vital Signs Temp 97.4 F L 12/16/24 06:00 Pulse 64 12/16/24 06:00 Resp 17 12/16/24 06:00 BP 116/82 12/16/24 06:00 Pulse Ox 96 12/16/24 06:00 O2 Del Method Room Air 12/16/24 06:00 Weight last 48 hrs Weight 103.079 kg Data NPU 12/10/24 21:26 12/10/24 21:26 A&P Assessment and plan 1. PTSD (post-traumatic stress disorder): 2. Intermittent explosive disorder: 3. Homicidal thoughts: Plan: 34-year-old male with a history of mild cognitive dysfunction, likely PTSD, poor impulse control currently endorsing homicidal ideation and unwilling to return to his current [facility]. #1. Attempt to engage patient in individual milieu and group therapy. #2. Will restart outpatient medications. #3. Will attempt to gather collateral information, likely seeking new placement. [facility] may be helpful as patient had reported good success with [facility] on monthly basis. #4. Will attempt to find new placement for patient-locked facility. #5. Patient and guardian may have to except a return to the current facility for some period of time if they will receive him while a new location is being orchestrated. PDMP PDMP Reviewed: Not Reviewed Involuntary Hold Information 2 Hold Status: Legal Status: Active Guardianship Attestations NPU 2 Medical Necessity Statement*: Inpatient hospitalization is medically necessary and the clinically appropriate intervention at this time. We will monitor/initiate medications and make changes as indicated. The patient's likely length of stay 4-6 days. Coding Level of Care Code Acute Code for [facility] Diagnoses PTSD (post-traumatic stress disorder) F43.10 Intermittent explosive disorder F63.81 Homicidal thoughts R45.850
[2024-12-16 13:54] VITALS: BP 116/76; PULSE 97; RESP 17; TEMP 36.6; O2SAT 96
[2024-12-16 20:24] VITALS: BP 107/67; PULSE 76; RESP 17; TEMP 36.8; O2SAT 96
[2024-12-16] MEDS: MELATONIN 3 MG TABLET 6 MG PO (20:42)
[2024-12-17 06:00] VITALS: BP 99/61; PULSE 74; RESP 17; TEMP 36.4; O2SAT 97
[2024-12-17] MEDS: divalproex DR 500 mg Tablet 1500 MG PO ×2 (08:33→17:10)
[2024-12-17 13:54] VITALS: RESP 16
[2024-12-17 19:43] VITALS: BP 118/78; PULSE 94; RESP 18; TEMP 37.1; O2SAT 94
--- NOTE | 2024-12-17 19:50 | P.NPUPN_ITS ---
Subjective NPU 2 Subjective: Patient presented today reporting that things are going okay. He identified that the conversation we have been having recently about being here and what he needed to do at his current facility was getting home and he reports that he is thinking that he might be ready to discharge back. He identifies that they are people that likely need the bed here and he wants to make sure that whoever has the bed is so my that actually needs it. He thinks that he can handle going back there and having them make rulings on the difference facilities that they put in for. We discussed the fact that his social group worker did put in many many referrals and things will continue to be explored by these facilities. He denied any lingering lethality or any other concerns and denied any side effects to his medication. Mental Status Exam 2 MSE Comments: This is a slender, tall white male in hospital scrubs with a flat occiput with adequate grooming and eye contact. No abnormal movements except for mild psychomotor agitation. Cooperative with exam in no acute distress. There was no evidence of any abnormal involuntary motor movements, tics, or tremors appreciated. His speech was normal in rate, rhythm, and prosody. His mood was described as better, I think you are ready to go home. His affect was congruent. His thought process was linear and appeared mostly organized. His thought content he denies suicidal and homicidal ideation, and there was no evidence of any delusional thinking. He did not appear to be responding to internal stimuli. His insight is limited but improving. His judgment is limited, but improving. His impulse control appeared to be improving. His recent and remote memory appeared grossly intact but probably poor. His fund of knowledge was poor and his intelligence appeared commensurate with mild cognitive impairment. Vitals/I&O/Wt Last Vital Signs Temp 98.8 F 12/17/24 19:43 Pulse 94 12/17/24 19:43 Resp 18 12/17/24 19:43 BP 118/78 12/17/24 19:43 Pulse Ox 94 12/17/24 19:43 O2 Del Method Room Air 12/17/24 19:43 Data NPU 12/10/24 21:26 12/10/24 21:26 A&P Assessment and plan 1. PTSD (post-traumatic stress disorder): 2. Intermittent explosive disorder: 3. Homicidal thoughts: Plan: 34-year-old male with a history of mild cognitive dysfunction, likely PTSD, poor impulse control currently endorsing homicidal ideation and unwilling to return to his current residential. #1. Attempt to engage patient in individual milieu and group therapy. #2. Will restart outpatient medications. #3. Will attempt to gather collateral information, likely seeking new placement. [facility] may be helpful as patient had reported good success with [facility] on monthly basis. #4. Will attempt to find new placement for patient-locked facility. #5. Patient and guardian may have to except a return to the current facility for some period of time if they will receive him while a new location is being orchestrated. Tentative plan to consider discharge tomorrow. PDMP PDMP Reviewed: Not Reviewed Involuntary Hold Information 2 Hold Status: Legal Status: Active Guardianship Date/Time Hold Expires: 1 Attestations NPU 2 Medical Necessity Statement*: Inpatient hospitalization is medically necessary and the clinically appropriate intervention at this time. We will monitor/initiate medications and make changes as indicated. The patient's likely length of stay 1-3 days. Coding Level of Care Code Acute Code for [facility] Fwd Diagnoses PTSD (post-traumatic stress disorder) F43.10 Intermittent explosive disorder F63.81 Homicidal thoughts R45.850
[2024-12-17] MEDS: MELATONIN 3 MG TABLET 6 MG PO (20:21)
[2024-12-18 06:00] VITALS: BP 100/67; PULSE 70; RESP 18; O2SAT 98
--- NOTE | 2024-12-18 08:52 | NUR.SHIFT ---
Pt states that he slept good last night. Denies anxiety and depression. No reports of SI/HI or hallucinations. No pain reported.
[2024-12-18] MEDS: divalproex DR 500 mg Tablet 1500 MG PO (09:40)
--- NOTE | 2024-12-18 12:26 | DCPLANNER ---
IMM was printed and provided to [facility] staff.
--- NOTE | 2024-12-18 13:26 | P.NPUDS_ITS ---
Diagnoses at Discharge Discharge Diagnosis 1. PTSD (post-traumatic stress disorder): 2. Intermittent explosive disorder: 3. Homicidal thoughts: Reason for Visit Reason for Visit: HI Involuntary Hold Information Hold Status: Legal Status: Active Guardianship Date/Time Hold Expires: 12/20/24 Mental Status Exam MSE Comments: This is a slender, tall white male in hospital scrubs with a flat occiput with adequate grooming and eye contact. No abnormal movements except for mild psychomotor agitation. Cooperative with exam in no acute distress. There was no evidence of any abnormal involuntary motor movements, tics, or tremors appreciated. His speech was normal in rate, rhythm, and prosody. His mood was described as better, I think you are ready to go home. His affect was congruent. His thought process was linear and appeared mostly organized. His thought content he denies suicidal and homicidal ideation, and there was no evidence of any delusional thinking. He did not appear to be responding to internal stimuli. His insight is limited but improving. His judgment is limited, but improving. His impulse control appeared to be improving. His recent and remote memory appeared grossly intact but probably poor. His fund of knowledge was poor and his intelligence appeared commensurate with mild cognitive impairment. Discharge Data Studies Completed and Pending: Laboratory Results WBC 6.22 10^3/uL (3.2 9-11.43) 12/10/24 21: RBC 4.80 10^6/uL (3.8 5-5.65) 12/10/24 21: Hgb 14.00 g/dL (11.27 -16.99) 12/10/24 21: Hct 40.2 % (37-53) 12/10/24 21: MCV 83.8 fl (82-101) 12/10/24 21: MCH 29.2 pg (27-33) 12/10/24 21: MCHC 34.8 g/dL (30-55) 12/10/24 21: RDW 13.1 % (12.1-15.1 ) 12/10/24 21: Plt Count 199 10^3/cmm (157 -399) 12/10/24 21: MPV 10.7 fL (7.4-10.4 ) H 12/10/24 21: Neut % (Auto) 39.1 % 12/10/24 21: Lymph % (Auto) 49.4 % 12/10/24 21: [place] % (Auto) 10.0 % 12/10/24 21: Eos % (Auto) 1.0 % 12/10/24: Baso % (Auto) 0.3 % 12/10/24: Neut # (Auto) 2.44 10^3/uL (1.8 -7.7) 12/10/24: Lymph # (Auto) 3.1 10^3/uL (0.8- 4.8) 12/10/24: [place] # (Auto) 0.6 10^3/uL (0.2- 0.9) 12/10/24: Eos # (Auto) 0.1 10^3/uL (0.0- 0.8) 12/10/24: Baso # (Auto) 0.0 10^3/uL (0.0- 0.1) 12/10/24 21: Nucleated RBC % (a uto) 0 % 12/10/24: Nucleated RBCs # 0.0 /100WBC 12/10/24 21: Sodium 138 mmol/L (136-1 45) 12/10/24 21: Potassium 4.1 mmol/L (3.5-5 .1) 12/10/24: Chloride 102 mmol/L (98-10 7) 12/10/24: Carbon Dioxide 25 mmol/L (22-29) 12/10/24: Anion Gap 15.1 (5-19) 12/10/24 21: BUN 11 mg/dL (6-20) 12/10/24 21: Creatinine 0.8 mg/dL (0.7-1. 2) 12/10/24: GFR Calculation 112.0 mL/min (90- 130) 12/10/24: Glucose 92 mg/dL (65-115) 12/10/24 21: Calculated Osmolal ity 285 mOsm/kg (285- 295) 12/10/24: Calcium 8.8 mg/dL (8.5-10 .5) 12/10/24: Total Bilirubin 0.2 mg/dL (0.15-1 .2) 12/10/24 21: AST 14 U/L (0-40) 12/10/24 21: ALT 10 U/L (0-41) 12/10/24 21: Alkaline Phosphata se 41 U/L (40-130) 12/10/24 21:26 Total Protein 6.9 g/dL (6.6-8.7 ) 12/10/24 21: Albumin 4.2 g/dL (3.5-5.2 ) 12/10/24 21: Globulin 2.7 g/dL (1.3-4.6 ) 12/10/24 21: Urine Color Yellow (Yellow) 12/10/24 21:53 Urine Appearance Clear (CLEAR) 12/10/24 21: Urine pH 7.5 (5-7) 12/10/24 21:53 Ur Specific Gravit y 1.010 (1.005-1.0 30) 12/10/24 21:53 Urine Protein Negative (Negati ve) 12/10/24 21:53 Urine Glucose (UA) Negative (Normal ) 12/10/24 21:53 Urine Ketones Negative (Negati ve) 12/10/24 21:53 Urine Blood Negative (Negati ve) 12/10/24 21:53 Urine Nitrate Negative (Negati ve) 12/10/24 21:53 Urine Bilirubin Negative (Negati ve) 12/10/24 21:53 Urine Urobilinogen 1.0 mg/dL (Negati ve) 12/10/24 21:53 Ur Leukocyte Carie ase Negative (Negati ve) 12/10/24 21:53 Amorphous Sediment Not Reportable 12/10/24 21:53 Salicylates < 0.3 mg/dL (3-10 ) L 12/10/24 21:26 Urine Opiates Scre en Negative ng/mL (N egative) 12/10/24 21:53 Acetaminophen < 5.0 ug/mL (10-3 0) L 12/10/24 21:26 Ur Barbiturates Sc reen Negative ng/mL (N egative) 12/10/24 21:53 Valproic Acid 95.6 ug/mL (50-10 0) 12/12/24 15:25 Ur Phencyclidine S crn Negative ng/mL (N egative) 12/10/24 21:53 Ur Amphetamines Sc reen Negative ng/mL (N egative) 12/10/24 21:53 U Benzodiazepines Scrn Positive ng/mL (N egative) H 12/10/24 21:53 Urine Cocaine Scre en Negative ng/mL (N egative) 12/10/24 21:53 U Marijuana (THC) Screen Negative ng/mL (N egative) 12/10/24 21:53 Vitals: Last Vital Signs Temp 98.8 F 12/17/24 19:43 Pulse 70 12/18/24 06:00 Resp 18 12/18/24 06:00 BP 100/67 12/18/24 06:00 Pulse Ox 98 12/18/24 06:00 O2 Del Method Room Air 12/18/24 06:00 Discharge Plan Discharge Patient Disposition: Home Condition: Stable Prescriptions: New bupropion HCl 150 mg Tablet Sustained-Release 12 Hr 150 mg PO 0800,1600 30 Days Qty: 60 1RF Rx Instructions: Second dose should be at 4:00 or around that time so that he is not taking Wellbutrin later in the day. melatonin 3 mg Tablet 6 mg PO BEDTIME 30 Days Qty: 60 1RF hydroxyzine pamoate 25 mg Capsule 50 mg PO Q6H PRN (Reason: Anxiety) 30 Days Qty: 120 1RF paliperidone 3 mg Tablet Extended Release 24hr 3 mg PO 2100 30 Days Qty: 30 1RF Continued Airsupra 90-80 mcg/actuation HFA aerosol inhaler 1 inh INHALATION 3XD PRN (Reason: Shortness Of Breath) diazepam [Valium] 5 mg tablet 5 mg PO buspirone 5 mg tablet 5 mg PO TID divalproex 250 mg tablet,delayed release (DR/EC) 1,500 mg PO BID doxazosin 1 mg tablet 1 mg PO 1XD fluphenazine HCl 5 mg tablet 5 mg PO TID levothyroxine 50 mcg tablet 50 mcg PO 1XD naltrexone 50 mg tablet 50 mg PO 1XD pantoprazole 40 mg tablet,delayed release (DR/EC) 40 mg PO 1XD quetiapine [Seroquel] 400 mg tablet 400 mg PO BID trazodone 150 mg tablet 150 mg PO 1XD Discontinued bupropion HCl (smoking deter) 150 mg tablet extended release 12 hr 150 mg PO BID Referrals: [facility] [Other] - 12/18/24 2:30 pm Patient Instructions: Opioid Safety, Patient Portal & Ghada Instructions Discharge Attestations NPU Time Spent in Discharge Care*: less than 30 min Specific Discharge Activities: Specific discharge activities: educating patient, discussing with welfare case worker/social workers/dc planners, documenting/other paperwork and evaluating patient/reviewing data Coding Level of Care Code Acute Code for [facility] Diagnoses PTSD (post-traumatic stress disorder) F43.10 Intermittent explosive disorder F63.81 Homicidal thoughts R45.850
[2024-12-18 13:50] VITALS: BP 122/75; PULSE 106; RESP 18; TEMP 36.3; O2SAT 97
[2024-12-18 14:00] VITALS: BP 122/75; PULSE 106; RESP 18; TEMP 36.3; O2SAT 97
== END 2024-12-18 16:24 | disposition home or self-care (01) | DRG 883 ==
LOC: ER 12-11 01:06 → NP 12-11 01:14
PROVIDERS: Psychiatry & Neurology Psychiatry; Admitting Provider Psychiatry & Neurology Psychiatry; Emergency Provider Student in an Organized Health Care Education/Training Program; Visit Provider Psychiatry & Neurology Psychiatry
DX: F63.81 Intermittent explosive disorder (principal); F43.10 Post-traumatic stress disorder, unspecified; Z62.810 Personal history of physical and sexual abuse in childhood; R45.850 Homicidal ideations; F17.200 Nicotine dependence, unspecified, uncomplicated; J45.909 Unspecified asthma, uncomplicated; G31.84 Mild cognitive impairment of uncertain or unknown etiology
CPT/HCPCS: 36415; 80053; 80164; 80306; 80307; 81003; 85025; 94640; 94664; 96372; 97150; 97165; 99285; J7611; J9999

== ENCOUNTER → 2025-01-09 08:48 | Outpatient (BNVA) | payer MEDICARE, SELFPAY | PROVIDERS: Visit Provider Orthopaedic Surgery | DX: S69.92XA Unspecified injury of left wrist, hand and finger(s), initial encounter (principal); X58.XXXA Exposure to other specified factors, initial encounter; F63.81 Intermittent explosive disorder; F43.10 Post-traumatic stress disorder, unspecified; R45.850 Homicidal ideations | CPT/HCPCS: 73130; 99204 ==

== ENCOUNTER → 2025-01-14 12:56 | Outpatient (BNVA) | payer MEDICARE, SELFPAY | PROVIDERS: Visit Provider Orthopaedic Surgery | DX: M25.562 Pain in left knee (principal); G89.29 Other chronic pain | CPT/HCPCS: 73560; 73565; 99214 ==

== ENCOUNTER 2025-02-16 22:15 | Emergency (ER) | payer MEDICARE, MEDICAID, SELFPAY ==
[2025-02-16 22:15] VITALS: BP 142/87; PULSE 89; RESP 18; TEMP 36.4; O2SAT 96; BMI 29.1
--- NOTE | 2025-02-16 22:16 | W.ED.PSYCHS ---
Documented by User: MAURISIO Faith 02/17/25 00:36 HPI - Psych General: Chief Complaint: Psychiatric Symptoms Stated Complaint: SI Time Seen by Provider: 02/16/25 22:15 Source: patient Mode of arrival: EMS Limitations: no limitations History of Present Illness: Patient is a 34-year-old male presents to ED today from [facility] for depression and suicidal ideation. Patient states another individual at [facility] recently and he was a good friend of the patient and that is what has caused him to feel suicidal. Patient does have a legal guardian. Patient states he has a plan to take a pin and stab his forearm and run out all the way up . Patient was seen here back in December and admitted to [facility]. MD complaint: suicidal ideation and feels depressed Onset (ago): day(s) Duration: constant History of same: Yes Relieving factors: none Exacerbating factors: other (loss of a friend) Context: significant life stressor Associated psychiatric symptoms: depression and suicidal ideation Associated symptoms: Reports depression and suicidal ideation; Deny auditory hallucinations or visual hallucinations Treatments prior to arrival: none Related Data Home Medications ?Medication ?Instructions ?Recorded ?Confirmed albuterol 90 mcg-budesonide 80 1 inh inhalation 3XD PRN Shortness 12/11/24 01/14/25 mcg/actuation HFA aerosol inhaler Of Breath (Airsupra) buspirone 5 mg tablet 5 mg PO TID 12/11/24 01/14/25 diazepam 5 mg tablet (Valium) 5 mg PO 12/11/24 01/14/25 divalproex 250 mg tablet,delayed 1,500 mg PO BID 12/11/24 01/14/25 release doxazosin 1 mg tablet 1 mg PO 1XD 12/11/24 01/14/25 fluphenazine HCl 5 mg tablet 5 mg PO TID 12/11/24 01/14/25 levothyroxine 50 mcg tablet 50 mcg PO 1XD 12/11/24 01/14/25 naltrexone 50 mg tablet 50 mg PO 1XD 12/11/24 01/14/25 pantoprazole 40 mg tablet,delayed 40 mg PO 1XD 12/11/24 01/14/25 release quetiapine 400 mg tablet (Seroquel) 400 mg PO BID 12/11/24 01/14/25 trazodone 150 mg tablet 150 mg PO 1XD 12/11/24 01/14/25 benztropine 1 mg tablet mg PO 01/09/25 01/14/25 Previous Rx's ?Medication ?Instructions ?Recorded bupropion HCl 150 mg tablet,12 hr 150 mg PO 0800,1600 30 days #60 12/18/24 sustained-release tabs bupropion HCl 150 mg tablet,12 hr 150 mg PO BID 30 days #60 tabs 12/18/24 sustained-release (Wellbutrin SR) hydroxyzine pamoate 25 mg capsule 50 mg (2 x 25 mg) PO Q6H PRN 12/18/24 Anxiety 30 days #120 caps hydroxyzine pamoate 25 mg capsule 50 mg (2 x 25 mg) PO Q6H PRN 12/18/24 (Vistaril) anxiety 30 days #120 caps melatonin 3 mg capsule 6 mg (2 x 3 mg) PO DAILY 30 days 12/18/24 #30 caps melatonin 3 mg tablet 6 mg (2 x 3 mg) PO BEDTIME 30 days 12/18/24 #60 tabs paliperidone 3 mg tablet,extended 3 mg PO 2100 30 days #30 tabs 12/18/24 release 24 hr paliperidone 3 mg tablet,extended 3 mg PO DAILY 30 days #30 tabs 12/18/24 release 24 hr (Invega) Allergies Allergy/AdvReac Type Severity Reaction Status Date / Time codeine Allergy Unknown Verified 02/16/25 22:22 haloperidol (From Haldol) Allergy Unknown Verified 02/16/25 22:22 ketamine Allergy Unknown Verified 02/16/25 22:22 Review of Systems Const: Denies: fever(s) or chills Card: Denies: chest pain, palpitations, lightheadedness or syncope Resp: Denies: dyspnea GI: Denies: abdominal pain, nausea, vomiting or diarrhea Skin/Breast: Denies: rash Neuro: Denies: headache(s) Psych: Reports: anxiety, depression, hopelessness, irritability and suicidal ideation; Denies: paranoia, visual hallucinations or auditory hallucinations PFSH ED PFSH: Social History Smoking and tobacco/nicotine status: current every day tobacco/nicotine user Physical Exam Const: COMMON NORMALS: no acute distress, patient oriented x3, no limitations, alert and well nourished GENERAL APPEARANCE: cooperative Resp: COMMON NORMALS: normal respiratory effort and clear to auscultation bilaterally AUSCULTATION: clear to auscultation bilaterally Cardio: COMMON NORMALS: regular rate and regular rhythm RATE: regular rate RHYTHM: regular rhythm Neuro: COMMON NORMALS: patient oriented x3 SENSORIUM/ORIENTATION: Yes alert Psych: COMMON NORMALS: mental status grossly normal, cooperative, normal affect, speech normal, activity/motor behavior normal, denies hallucinations and denies homicidal ideation APPEARANCE: Yes grossly normal ATTITUDE: Yes calm ACTIVITY/MOTOR BEHAVIOR: Yes appropriate eye contact and No psychomotor agitation SPEECH: Yes normal speech MOOD & AFFECT: Yes euthymic mood THOUGHT CONTENT: Yes Suicidality present ATTENTION/CONCENTRATION: Yes attention grossly intact and Yes concentration grossly intact MEMORY/COGNITION: Yes memory grossly intact INSIGHT: Fair insight present (Psych) JUDGEMENT: Fair judgement present (Psych) Course Vital Signs: Vital signs: Vital Signs Temperature 97.5 F L 02/16/25 22:15 Pulse Rate 89 02/16/25 22:15 Respiratory Rate 18 02/16/25 22:15 Blood Pressure 142/87 02/16/25 22:15 Pulse Oximetry 96 02/16/25 22:15 Oxygen Delivery Me thod Room Air 02/16/25 22:15 MDM - Psych Medical Decision Making Patient is voluntary with affidavit. Plan will be admit to [facility] tomorrow or transfer depending if we are able to find a bed for him this evening. [facility] might have a bed tomorrow but it will be later after discharges. Medical Records I reviewed the patient's medical records. Lab Data I reviewed the patient's lab results. 02/16/25 22:18 02/16/25 22:18 Laboratory Results WBC 4.27 10^3/uL (3.29-11.43) 02/16/25 22:18 RBC 4.42 10^6/uL (3.85-5.65) 02/16/25 22:18 Hgb 13.30 g/dL (11.27-16.99) 02/16/25 22:18 Hct 38.3 % (37-53) 02/16/25 22:18 MCV 86.7 fl (82-101) 02/16/25 22:18 MCH 30.1 pg (27-33) 02/16/25 22:18 MCHC 34.7 g/dL (30-55) 02/16/25 22:18 RDW 12.6 % (12.1-15.1) 02/16/25 22:18 Plt Count 148 10^3/cmm (157-399) L 02/16/25 22:18 MPV 10.4 fL (7.4-10.4) 02/16/25 22:18 Neut % (Auto) 38.6 % 02/16/25 22:18 Lymph % (Auto) 44.5 % 02/16/25 22:18 [place] % (Auto) 13.6 % 02/16/25 22:18 Eos % (Auto) 2.3 % 02/16/25 22:18 Baso % (Auto) 0.5 % 02/16/25 22:18 Neut # (Auto) 1.65 10^3/uL (1.8-7.7) L 02/16/25 22:18 Lymph # (Auto) 1.9 10^3/uL (0.8-4.8) 02/16/25 22:18 [place] # (Auto) 0.6 10^3/uL (0.2-0.9) 02/16/25 22:18 Eos # (Auto) 0.1 10^3/uL (0.0-0.8) 02/16/25 22:18 Baso # (Auto) 0.0 10^3/uL (0.0-0.1) 02/16/25 22:18 Nucleated RBC % (auto) 0 % 02/16/25 22:18 Nucleated RBCs # 0.0 /100WBC 02/16/25 22:18 Sodium 130 mmol/L (136-145) L 02/16/25 22:18 Potassium 3.6 mmol/L (3.5-5.1) 02/16/25 22:18 Chloride 95 mmol/L (98-107) L 02/16/25 22:18 Carbon Dioxide 27 mmol/L (22-29) 02/16/25 22:18 Anion Gap 11.6 (5-19) 02/16/25 22:18 BUN 11 mg/dL (6-20) 02/16/25 22:18 Creatinine 0.9 mg/dL (0.7-1.2) 02/16/25 22:18 GFR Calculation 97.8 mL/min (90-130) 02/16/25 22:18 Glucose 119 mg/dL (65-115) H 02/16/25 22:18 Calculated Osmolality 271 mOsm/kg (285-295) L 02/16/25 22:18 Calcium 8.4 mg/dL (8.5-10.5) L 02/16/25 22:18 Total Bilirubin 0.2 mg/dL (0.15-1.2) 02/16/25 22:18 AST 28 U/L (0-40) 02/16/25 22:18 ALT 30 U/L (0-41) 02/16/25 22:18 Alkaline Phosphatase 39 U/L (40-130) L 02/16/25 22:18 Total Protein 6.3 g/dL (6.6-8.7) L 02/16/25 22:18 Albumin 4.2 g/dL (3.5-5.2) 02/16/25 22:18 Globulin 2.1 g/dL (1.3-4.6) 02/16/25 22:18 TSH 4.58 uIU/mL (0.27-4.20) H 02/16/25 22:18 Urine Color Dark yellow (Yellow) A 02/16/25: Urine Appearance Clear (CLEAR) 02/16/25: Urine pH 6.5 (5-7) 02/16/25: Ur Specific [place] 1.029 (1.005-1.030) 02/16/25: Urine Protein Trace (Negative) A 02/16/25: Urine Glucose (UA) Negative (Normal) 02/16/25: Urine Ketones Trace (Negative) 02/16/25: Urine Blood Negative (Negative) 02/16/25: Urine Nitrate Negative (Negative) 02/16/25: Urine Bilirubin Negative (Negative) 02/16/25: Urine Urobilinogen 1.0 mg/dL (Negative) 02/16/25: Ur Leukocyte Esterase Negative (Negative) 02/16/25: Urine RBC 0-2 /hpf (0-2) 02/16/25 22: Urine WBC 0-5 /hpf (0-5) 02/16/25 22:29 Ur Squamous Epith Cells 0-5 /hpf (0-5) 02/16/25 22:29 Amorphous Sediment Not Reportable 02/16/25 22:29 Urine Bacteria None seen /hpf (NONE) 02/16/25 22:29 Hyaline Casts 0.81 /lpf 02/16/25 22:29 Salicylates < 0.3 mg/dL (3-10) L 02/16/25 22:18 Urine Opiates Screen Negative ng/mL (Negative) 02/16/25 22:29 Acetaminophen < 5.0 ug/mL (10-30) L 02/16/25 22:18 Ur Barbiturates Screen Negative ng/mL (Negative) 02/16/25 22:29 Ur Phencyclidine Scrn Negative ng/mL (Negative) 02/16/25 22:29 Ur Amphetamines Screen Negative ng/mL (Negative) 02/16/25 22:29 U Benzodiazepines Scrn Positive ng/mL (Negative) H 02/16/25 22:29 Urine Cocaine Screen Negative ng/mL (Negative) 02/16/25 22:29 U Marijuana (THC) Screen Negative ng/mL (Negative) 02/16/25 22:29 Ethyl Alcohol < 10 mg/dL (0-10) 02/16/25 22:18 Influenza A (PCR) Negative (Negative) 02/16/25 22:39 Influenza Type B (PCR) Negative (Negative) 02/16/25 22:39 RSV (PCR) Negative (Negative) 02/16/25 22:39 SARS-CoV-2 (PCR) Negative (Negative) 02/16/25 22:39 No radiology studies performed this visit Discharge Plan Discharge Clinical Impression: Suicidal ideation Condition: Stable Prescriptions: No Action benztropine 1 mg tablet PO Airsupra 90-80 mcg/actuation HFA aerosol inhaler 1 inh INHALATION 3XD PRN (Reason: Shortness Of Breath) diazepam [Valium] 5 mg tablet 5 mg PO buspirone 5 mg tablet 5 mg PO TID divalproex 250 mg tablet,delayed release (DR/EC) 1,500 mg PO BID doxazosin 1 mg tablet 1 mg PO 1XD fluphenazine HCl 5 mg tablet 5 mg PO TID levothyroxine 50 mcg tablet 50 mcg PO 1XD naltrexone 50 mg tablet 50 mg PO 1XD pantoprazole 40 mg tablet,delayed release (DR/EC) 40 mg PO 1XD quetiapine [Seroquel] 400 mg tablet 400 mg PO BID trazodone 150 mg tablet 150 mg PO 1XD bupropion HCl 150 mg Tablet Sustained-Release 12 Hr 150 mg PO 0800,1600 30 Days Qty: 60 1RF Rx Instructions: Second dose should be at 4:00 or around that time so that he is not taking Wellbutrin later in the day. melatonin 3 mg Tablet 6 mg PO BEDTIME 30 Days Qty: 60 1RF hydroxyzine pamoate 25 mg Capsule 50 mg PO Q6H PRN (Reason: Anxiety) 30 Days Qty: 120 1RF paliperidone 3 mg Tablet Extended Release 24hr 3 mg PO 2100 30 Days Qty: 30 1RF paliperidone [Invega] 3 mg tablet extended release 24hr 3 mg PO DAILY 30 Days Qty: 30 1RF melatonin 3 mg capsule 6 mg PO DAILY 30 Days Qty: 30 1RF hydroxyzine pamoate [Vistaril] 25 mg capsule 50 mg PO Q6H PRN (Reason: anxiety) 30 Days Qty: 120 1RF bupropion HCl [Wellbutrin SR] 150 mg tablet sustained-release 12 hr 150 mg PO BID 30 Days Qty: 60 1RF Rx Instructions: Dose that should be in 8 AM 4 PM Print Language: Nigerien Coding Level of Care Code ED Store Operations Manager for Chg Fwd Documented by User: Jad Bailon, 02/17/25 00:14 HPI - Psych General: Chief Complaint: Psychiatric Symptoms Stated Complaint: SI Time Seen by Provider: 02/16/25 22:15 Related Data Home Medications ?Medication ?Instructions ?Recorded ?Confirmed albuterol 90 mcg-budesonide 80 1 inh inhalation 3XD PRN Shortness 12/11/24 01/14/25 mcg/actuation HFA aerosol inhaler Of Breath (Airsupra) buspirone 5 mg tablet 5 mg PO TID 12/11/24 01/14/25 diazepam 5 mg tablet (Valium) 5 mg PO 12/11/24 01/14/25 divalproex 250 mg tablet,delayed 1,500 mg PO BID 12/11/24 01/14/25 release doxazosin 1 mg tablet 1 mg PO 1XD 12/11/24 01/14/25 fluphenazine HCl 5 mg tablet 5 mg PO TID 12/11/24 01/14/25 levothyroxine 50 mcg tablet 50 mcg PO 1XD 12/11/24 01/14/25 naltrexone 50 mg tablet 50 mg PO 1XD 12/11/24 01/14/25 pantoprazole 40 mg tablet,delayed 40 mg PO 1XD 12/11/24 01/14/25 release quetiapine 400 mg tablet (Seroquel) 400 mg PO BID 12/11/24 01/14/25 trazodone 150 mg tablet 150 mg PO 1XD 12/11/24 01/14/25 benztropine 1 mg tablet mg PO 01/09/25 01/14/25 Previous Rx's ?Medication ?Instructions ?Recorded bupropion HCl 150 mg tablet,12 hr 150 mg PO 0800,1600 30 days #60 12/18/24 sustained-release tabs bupropion HCl 150 mg tablet,12 hr 150 mg PO BID 30 days #60 tabs 12/18/24 sustained-release (Wellbutrin SR) hydroxyzine pamoate 25 mg capsule 50 mg (2 x 25 mg) PO Q6H PRN 12/18/24 Anxiety 30 days #120 caps hydroxyzine pamoate 25 mg capsule 50 mg (2 x 25 mg) PO Q6H PRN 12/18/24 (Vistaril) anxiety 30 days #120 caps melatonin 3 mg capsule 6 mg (2 x 3 mg) PO DAILY 30 days 12/18/24 #30 caps melatonin 3 mg tablet 6 mg (2 x 3 mg) PO BEDTIME 30 days 12/18/24 #60 tabs paliperidone 3 mg tablet,extended 3 mg PO 2100 30 days #30 tabs 12/18/24 release 24 hr paliperidone 3 mg tablet,extended 3 mg PO DAILY 30 days #30 tabs 12/18/24 release 24 hr (Invega) Allergies Allergy/AdvReac Type Severity Reaction Status Date / Time codeine Allergy Unknown Verified 02/16/25 22:22 haloperidol (From Haldol) Allergy Unknown Verified 02/16/25 22:22 ketamine Allergy Unknown Verified 02/16/25 22:22 [facility] PF[facility]: Social History Smoking and tobacco/nicotine status: current every day tobacco/nicotine user Course Vital Signs: Vital signs: Vital Signs Temperature 97.5 F L 02/16/25 22:15 Pulse Rate 89 02/16/25 22:15 Respiratory Rate 18 02/16/25 22:15 Blood Pressure 142/87 02/16/25 22:15 Pulse Oximetry 96 02/16/25 22:15 Oxygen Delivery Me thod Room Air 02/16/25 22:15 MDM - Psych Medical Decision Making Patient is voluntary with affidavit. Plan will be admit to [facility] tomorrow or transfer depending if we are able to find a bed for him this evening. [facility] might have a bed tomorrow but it will be later after discharges. Patient was originally seen by Mrs. Yee?DUARTE Downs. I agree with her history, evaluation, and management. Lab Data 02/16/25 22:18 02/16/25 22:18 Laboratory Results WBC 4.27 10^3/uL (3.29-11.43) 02/16/25 22:18 RBC 4.42 10^6/uL (3.85-5.65) 02/16/25 22:18 Hgb 13.30 g/dL (11.27-16.99) 02/16/25 22:18 Hct 38.3 % (37-53) 02/16/25 22:18 MCV 86.7 fl (82-101) 02/16/25 22:18 MCH 30.1 pg (27-33) 02/16/25 22:18 MCHC 34.7 g/dL (30-55) 02/16/25 22:18 RDW 12.6 % (12.1-15.1) 02/16/25 22:18 Plt Count 148 10^3/cmm (157-399) L 02/16/25 22:18 MPV 10.4 fL (7.4-10.4) 02/16/25 22:18 Neut % (Auto) 38.6 % 02/16/25 22:18 Lymph % (Auto) 44.5 % 02/16/25 22:18 [place] % (Auto) 13.6 % 02/16/25 22:18 Eos % (Auto) 2.3 % 02/16/25 22:18 Baso % (Auto) 0.5 % 02/16/25 22:18 Neut # (Auto) 1.65 10^3/uL (1.8-7.7) L 02/16/25 22:18 Lymph # (Auto) 1.9 10^3/uL (0.8-4.8) 02/16/25 22:18 [place] # (Auto) 0.6 10^3/uL (0.2-0.9) 02/16/25 22:18 Eos # (Auto) 0.1 10^3/uL (0.0-0.8) 02/16/25 22:18 Baso # (Auto) 0.0 10^3/uL (0.0-0.1) 02/16/25 22:18 Nucleated RBC % (auto) 0 % 02/16/25 22:18 Nucleated RBCs # 0.0 /100WBC 02/16/25 22:18 Sodium 130 mmol/L (136-145) L 02/16/25 22:18 Potassium 3.6 mmol/L (3.5-5.1) 02/16/25 22:18 Chloride 95 mmol/L (98-107) L 02/16/25 22:18 Carbon Dioxide 27 mmol/L (22-29) 02/16/25 22:18 Anion Gap 11.6 (5-19) 02/16/25 22:18 BUN 11 mg/dL (6-20) 02/16/25 22:18 Creatinine 0.9 mg/dL (0.7-1.2) 02/16/25 22:18 GFR Calculation 97.8 mL/min (90-130) 02/16/25 22:18 Glucose 119 mg/dL (65-115) H 02/16/25 22:18 Calculated Osmolality 271 mOsm/kg (285-295) L 02/16/25 22:18 Calcium 8.4 mg/dL (8.5-10.5) L 02/16/25 22:18 Total Bilirubin 0.2 mg/dL (0.15-1.2) 02/16/25 22:18 AST 28 U/L (0-40) 02/16/25 22:18 ALT 30 U/L (0-41) 02/16/25 22: Alkaline Phosphatase 39 U/L (40-130) L 02/16/25 22:18 Total Protein 6.3 g/dL (6.6-8.7) L 02/16/25 22:18 Albumin 4.2 g/dL (3.5-5.2) 02/16/25 22:18 Globulin 2.1 g/dL (1.3-4.6) 02/16/25 22: TSH 4.58 uIU/mL (0.27-4.20) H 02/16/25: Urine Color Dark yellow (Yellow) A 02/16/25: Urine Appearance Clear (CLEAR) 02/16/25: Urine pH 6.5 (5-7) 02/16/25: Ur Specific [place] 1.029 (1.005-1.030) 02/16/25: Urine Protein Trace (Negative) A 02/16/25: Urine Glucose (UA) Negative (Normal) 02/16/25: Urine Ketones Trace (Negative) 02/16/25: Urine Blood Negative (Negative) 02/16/25: Urine Nitrate Negative (Negative) 02/16/25: Urine Bilirubin Negative (Negative) 02/16/25: Urine Urobilinogen 1.0 mg/dL (Negative) 02/16/25: Ur Leukocyte Esterase Negative (Negative) 02/16/25: Urine RBC 0-2 /hpf (0-2) 02/16/25 22: Urine WBC 0-5 /hpf (0-5) 02/16/25: Ur Squamous Epith Cells 0-5 /hpf (0-5) 02/16/25: Amorphous Sediment Not Reportable 02/16/25: Urine Bacteria None seen /hpf (NONE) 02/16/25: Hyaline Casts 0.81 /lpf 02/16/25: Salicylates < 0.3 mg/dL (3-10) L 12/07/25 22:18 Urine Opiates Screen Negative ng/mL (Negative) 02/16/25 22:29 Acetaminophen < 5.0 ug/mL (10-30) L 02/16/25 22:18 Ur Barbiturates Screen Negative ng/mL (Negative) 02/16/25 22:29 Ur Phencyclidine Scrn Negative ng/mL (Negative) 02/16/25 22:29 Ur Amphetamines Screen Negative ng/mL (Negative) 02/16/25 22:29 U Benzodiazepines Scrn Positive ng/mL (Negative) H 02/16/25 22:29 Urine Cocaine Screen Negative ng/mL (Negative) 02/16/25 22:29 U Marijuana (THC) Screen Negative ng/mL (Negative) 02/16/25 22:29 Ethyl Alcohol < 10 mg/dL (0-10) 02/16/25 22:18 Influenza A (PCR) Negative (Negative) 02/16/25 22:39 Influenza Type B (PCR) Negative (Negative) 02/16/25 22:39 RSV (PCR) Negative (Negative) 02/16/25 22:39 SARS-CoV-2 (PCR) Negative (Negative) 02/16/25 22:39 Discharge Plan Discharge Clinical Impression: Suicidal ideation Condition: Stable Prescriptions: No Action benztropine 1 mg tablet PO Airsupra 90-80 mcg/actuation HFA aerosol inhaler 1 inh INHALATION 3XD PRN (Reason: Shortness Of Breath) diazepam [Valium] 5 mg tablet 5 mg PO buspirone 5 mg tablet 5 mg PO TID divalproex 250 mg tablet,delayed release (DR/EC) 1,500 mg PO BID doxazosin 1 mg tablet 1 mg PO 1XD fluphenazine HCl 5 mg tablet 5 mg PO TID levothyroxine 50 mcg tablet 50 mcg PO 1XD naltrexone 50 mg tablet 50 mg PO 1XD pantoprazole 40 mg tablet,delayed release (DR/EC) 40 mg PO 1XD quetiapine [Seroquel] 400 mg tablet 400 mg PO BID trazodone 150 mg tablet 150 mg PO 1XD bupropion HCl 150 mg Tablet Sustained-Release 12 Hr 150 mg PO 0800,1600 30 Days Qty: 60 1RF Rx Instructions: Second dose should be at 4:00 or around that time so that he is not taking Wellbutrin later in the day. melatonin 3 mg Tablet 6 mg PO BEDTIME 30 Days Qty: 60 1RF hydroxyzine pamoate 25 mg Capsule 50 mg PO Q6H PRN (Reason: Anxiety) 30 Days Qty: 120 1RF paliperidone 3 mg Tablet Extended Release 24hr 3 mg PO 2100 30 Days Qty: 30 1RF paliperidone [Invega] 3 mg tablet extended release 24hr 3 mg PO DAILY 30 Days Qty: 30 1RF melatonin 3 mg capsule 6 mg PO DAILY 30 Days Qty: 30 1RF hydroxyzine pamoate [Vistaril] 25 mg capsule 50 mg PO Q6H PRN (Reason: anxiety) 30 Days Qty: 120 1RF bupropion HCl [Wellbutrin SR] 150 mg tablet sustained-release 12 hr 150 mg PO BID 30 Days Qty: 60 1RF Rx Instructions: Dose that should be in 8 AM 4 PM Print Language: Nigerien Coding Level of Care Code ED Store Operations Manager for Michelle Flowers
[2025-02-16 22:23] LABS: Hematocrit 38.3 % (37-53); Hemoglobin 13.30 g/dL (11.27-16.99); Mean Corpuscular HGB Conc 34.7 g/dL (30-55); Mean Corpuscular Hemoglobin 30.1 pg (27-33); Mean Corpuscular Volume 86.7 fl (82-101); Nucleated Red Blood Cells % 0 %; Platelet Count 148 10^3/cmm (157-399); Red Blood Count 4.42 10^6/uL (3.85-5.65); White Blood Count 4.27 10^3/uL (3.29-11.43)
[2025-02-16 22:37] LABS: Glucose Urine UA Negative (Normal); Nitrate Urine Negative (Negative); Specific Gravity, Urine 1.029 (1.005-1.030)
--- NOTE | 2025-02-16 22:37 | ECG_ITS ---
[facility] Date: 2025-02-16 Pat Name: Praneeth Sr Department: Room: Gender: Male First Assistant: : 1990 Requested By: Karo Yee Order Number: [id number] Chon MD: Kylah Miranda M.D. Measurements Intervals [place] Rate: 80 P: 68 UT: 144 QRS: 55 QRSD: 93 T: 70 QT: 354 QTc: 410 Interpretive Statements SINUS RHYTHM NONSPECIFIC T-WAVE ABNORMALITY WARNING: DATA QUALITY MAY AFFECT INTERPRETATION Compared to ECG 09/15/2024 19:30:01 T-wave abnormality now present Lead V5 is missing Electronically Signed On 02-20-2025 18:21:23 HVAC CONTROLS TECHNICIAN by Kylah Miranda M.D. [email or web address]
[2025-02-16 22:43] LABS: Add Urine Microscopic? YES
[2025-02-16 22:44] LABS: PCP Screen Urine Negative (Negative)
[2025-02-16 22:54] LABS: Alanine Aminotransferase 30 U/L (0-41); Albumin Level 4.2 g/dL (3.5-5.2); Alkaline Phosphatase 39 U/L (40-130); Anion Gap 11.6 (5-19); Aspartate Amino Transferase 28 U/L (0-40); Blood Urea Nitrogen 11 mg/dL (6-20); Calcium 8.4 mg/dL (8.5-10.5); Carbon Dioxide 27 mmol/L (22-29); Chloride 95 mmol/L (98-107); Globulin 2.1 g/dL (1.3-4.6); Glucose 119 mg/dL (65-115); Osmolality Calculated 271 mOsm/kg (285-295); Potassium 3.6 mmol/L (3.5-5.1); Sodium 130 mmol/L (136-145); Thyroid Stimulating Hormone 4.58 uIU/mL (0.27-4.20); Total Protein 6.3 g/dL (6.6-8.7)
[2025-02-16 22:55] LABS: Acetaminophen < 5.0 ug/mL (10-30); Alcohol Level < 10 mg/dL (0-10); Salicylate < 0.3 mg/dL (3-10)
[2025-02-16 23:26] LABS: Respiratory Syncytial Virus Ce NEGATIVE (Negative); SARS-CoV-2 PCR NEGATIVE (Negative)
--- NOTE | 2025-02-17 00:31 | PC.NURSE ---
THIS RN ASSUMED CARE @0030. BEDSIDE REPORT DONE WITH MICHAEL KWON.
[2025-02-17 00:57] VITALS: BP 137/92; PULSE 83; O2SAT 97
--- NOTE | 2025-02-17 01:27 | PC.NURSE ---
PT REPORT CALLED TO [facility] - RADHA LOMBARDI RN.
[2025-02-17 02:04] VITALS: BP 137/92; PULSE 83; O2SAT 97
== END 2025-02-17 02:06 ==
PROVIDERS: Emergency Provider Physician Assistant
DX: R45.851 Suicidal ideations (principal); Z11.52 Encounter for screening for COVID-19; Z72.0 Tobacco use
CPT/HCPCS: 36415; 80053; 80306; 80307; 81001; 84443; 85025; 87637; 93005; 99285